=== PATIENT | male | born 1985 | race Caucasian/White ===

== ENCOUNTER 2016-06-09 13:32 | Emergency (ER) | payer MEDICAID ==
[2016-02-17 12:39] VITALS: Ht 172.7 cm; Wt 99.8 kg
[~2016-06-09] VITALS: Ht 172.7 cm; Wt 99.8 kg
[~2016-06-09 13:32] MED LIST: ALBU2.5V7 INH; ARTT OP; ASCO500T20 GT; BACL20TA GT; COLL100 GT; DEXL30CA3 GT; DULR10 RC; HEPA500014 SUBCUT; HYDR-1189 GT; HYDR-1189 PO; LEVE100S GT; LORA-258 GT; MAGN400O4 PO; MORP30CA17 GT; MULT240L3 GT; NEU100 GT; POTA20LI25 GT; SENN17.26 GT; TOPI100T11 GT; TYLL650 GT
[2016-06-09] MEDS ORDERED: GASTROGRAFIN 120 ML ONE (13:50)
[2016-06-09 13:54] VITALS: BP 124/64; PULSE 73; RESP 14; TEMP 98.9; O2SAT 100
[2016-06-09 14:28] VITALS: BP 133/71; PULSE 65; RESP 18; TEMP 98; O2SAT 100
== END 2016-06-09 14:28 | disposition home or self-care (01) ==
LOC: SED 13:32
DX: Z46.59 Encounter for fitting and adjustment of other gastrointestinal appliance and device (principal); I10 Essential (primary) hypertension
CPT/HCPCS: 43760; 74240; 99284; Q9963

== ENCOUNTER 2020-07-28 13:12 | Inpatient (IN) | payer BC, SELFPAY ==
[~2020-07-28] VITALS: Ht 175.3 cm; Wt 82.6 kg
[~2020-07-28 13:12] MED LIST changes: +CEFEPIME 1 GM/VIAL (MAXIPIME) IV ONE; -HEPA500014 SUBCUT; +HEPA500015 SUBCUT; -HYDR-1189 GT; -HYDR-1189 PO; +HYDR-3919 GT; +HYDR-3919 PO; -MAGN400O4 PO; +MOM PO; +NS 1000 ML IV.SOLN IV ONE; +NS IRRIG SOLN 1000 ML IR ONE; +PROPOFOL 200MG/ 20ML VIAL (DIPRIVAN) IV ONE; +SEVOFLURANE 15 MIN GAS INH ONE; +WATER FOR IRRIGATION,STERILE 1,000 ML IRRIG.SOLN IR ONE; +fentaNYL CITRATE/PF 100 MCG/2 ML AMP IVP ONE
[2020-07-28 15:34] LABS: BASOPHILS # (AUTO) 0.1 K/uL (0.0-0.2); BASOPHILS % (AUTO) 0.8 % (0.0-2.0); EOSINOPHILS # (AUTO) 0.2 K/uL (0.0-0.4); EOSINOPHILS % (AUTO) 1.6 % (0.0-4.0); HEMATOCRIT 48.9 % (36-54); HEMOGLOBIN 16.3 g/dL (14.0-18.0); LYMPHOCYTES # (AUTO) 2.6 K/uL (1.0-5.5); LYMPHOCYTES % (AUTO) 18.8 % (20.5-51.5); MEAN CORPUSCULAR HEMOGLOBIN 31 pg (27-31); MEAN CORPUSCULAR HGB CONC 33 % (32-36); MEAN CORPUSCULAR VOLUME 92 fL (79.0-98.0); MONOCYTES # (AUTO) 1.1 K/uL (0.0-1.0); MONOCYTES % (AUTO) 8.1 % (1.7-9.3); NEUTROPHILS # (AUTO) 9.9 K/uL (1.8-7.7); NEUTROPHILS % (AUTO) 70.7 % (40.0-70.0); PLATELET COUNT (AUTO) 197 K/uL (130-430); RED BLOOD CELL COUNT(AUTO) 5.33 MIL/uL (4.2-6.2); RED CELL DISTRIBUTION WIDTH 14.2 % (9.0-15.0)
[2020-07-28 15:49] LABS: CALCIUM 8.6 mg/dL (8.4-11.0); CREATININE 0.84 mg/dL (0.55-1.30); POTASSIUM 4.3 mmol/L (3.5-5.1)
[2020-07-28] MEDS ORDERED: LIDOCAINE 1%, 20 ML MDV 20 ML ONE (16:41)
[2020-07-28] MEDS ORDERED: ALBUTEROL MDI INHALATION 8 GM INH INH PRN (18:00)
[2020-07-28 20:20] VITALS: BP_SYST 130
[2020-07-28 20:48] VITALS: BP_SYST 145
[2020-07-28 20:54] VITALS: BP_SYST 145
[2020-07-28] MEDS ORDERED: SENNA 8.8 MG/5 ML UDC GT SCH (21:00)
[2020-07-28] MEDS ORDERED: LevETIRAcetam 500 MG/5 ML UDC ORAL LIQUID GT SCH (21:00)
[2020-07-28] MEDS ORDERED: levETIRAcetam 500 MG TABLET ONE (22:21)
[2020-07-28] MEDS: CALCIUM CARBONATE 500 MG/ TAB.CHEW GT SCH (22:24)
[2020-07-28] MEDS ORDERED: MORPHINE SULFATE 30 MG GT SCH (22:45)
[2020-07-28] MEDS ORDERED: HYDROcodone/ACETAMIN 5-325 MG TAB (NORCO/ VICODIN) GT PRN (22:45)
[2020-07-28] MEDS ORDERED: PEG 400/HYPROMELLOSE/GLYCERIN 15 ML DROPS OP SCH (22:45)
[2020-07-28] MEDS: ALBUTEROL SULFATE 0.083% 2.5 MG/3 ML VIAL.NEB INH SCH (22:45)
[2020-07-28] MEDS ORDERED: NALOXONE HCL 0.4 MG/ML AMP (NARCAN) IVP PRN ×2 (22:45→23:00)
[2020-07-28] MEDS ORDERED: MILK OF MAGNESIA 30 ML UDC PO PRN (22:45)
[2020-07-28] MEDS ORDERED: BISACODYL 10 MG/SUPPOSITORY RC PRN (22:45)
[2020-07-28] MEDS ORDERED: ALBUTEROL SULFATE 0.083% 2.5 MG/3 ML VIAL.NEB INH PRN (22:45)
[2020-07-28] MEDS ORDERED: ACETAMINOPHEN 650 MG/20.3 ML UDC GT PRN (22:45)
[2020-07-28] MEDS ORDERED: COMMUNICATION ORDER XX ONE (23:00)
[2020-07-28] MEDS ORDERED: MORPHINE 2 MG/ML INJ. SYRINGE IVP PRN (23:00)
[2020-07-28] MEDS ORDERED: hydrALAZINE HCL 20 MG/ML VIAL IVP PRN (23:00)
[2020-07-28] MEDS ORDERED: levETIRAcetam 500 MG TABLET GT ONE (23:00)
[2020-07-28] MEDS ORDERED: LORazepam 2 MG/ML VIAL IVP PRN (23:00)
[2020-07-28] MEDS: GABAPENTIN 100 MG CAPSULE GT SCH (23:11)
[2020-07-28] MEDS: PANTOPRAZOLE SODIUM 40 MG/VIAL (PROTONIX) IVP SCH (23:11)
[2020-07-28] MEDS: TOPIRAMATE 100 MG TABLET(Topamax) GT SCH (23:12)
[2020-07-28] MEDS: SUCRALFATE 1 GM/10 ML UDC GT SCH (23:13)
[2020-07-28] MEDS ORDERED: CEFEPIME 1 GM/VIAL (MAXIPIME) ONE (23:35)
[2020-07-28] MEDS: D5/0.45 NS 1,000 ML IV SCH (23:56)
[2020-07-28] MEDS: CEFEPIME 1 GM in D5W 50 ML IV SCH (23:56)
[2020-07-29] VITALS (7 sets, daily range): BP systolic 106–166
[2020-07-29] MEDS: ALBUTEROL SULFATE 0.083% 2.5 MG/3 ML VIAL.NEB INH SCH ×4 (01:00→20:21)
[2020-07-29] MEDS: LANSOPRAZOLE 30 MG CAPSULE.DR GT SCH (06:21)
[2020-07-29] MEDS: SUCRALFATE 1 GM/10 ML UDC GT SCH ×4 (06:21→23:43)
[2020-07-29 07:25] LABS: CALCIUM 8.3 mg/dL (8.4-11.0); CREATININE 0.88 mg/dL (0.55-1.30); POTASSIUM 3.8 mmol/L (3.5-5.1)
[2020-07-29 07:29] LABS: HEMATOCRIT 50.6 % (36-54); HEMOGLOBIN 16.8 g/dL (14.0-18.0); MEAN CORPUSCULAR HEMOGLOBIN 31 pg (27-31); MEAN CORPUSCULAR HGB CONC 33 % (32-36); MEAN CORPUSCULAR VOLUME 92 fL (79.0-98.0); PLATELET COUNT (AUTO) 187 K/uL (130-430); RED CELL DISTRIBUTION WIDTH 14.1 % (9.0-15.0); WHITE BLOOD COUNT (AUTO) 24.2 K/uL (4.8-10.8)
[2020-07-29] MEDS: PANTOPRAZOLE SODIUM 40 MG/VIAL (PROTONIX) IVP SCH ×2 (08:17→21:58)
[2020-07-29] MEDS: LevETIRAcetam 500 MG/5 ML UDC ORAL LIQUID GT SCH ×2 (08:17→21:57)
[2020-07-29] MEDS: DOCUSATE SODIUM 100 MG/10 ML UDC GT SCH ×2 (08:17→21:57)
[2020-07-29] MEDS: GABAPENTIN 100 MG CAPSULE GT SCH ×3 (08:17→21:58)
[2020-07-29] MEDS: POTASSIUM CHLORIDE 20 MEQ/PKT PACKET GT SCH (08:17)
[2020-07-29] MEDS: CALCIUM CARBONATE 500 MG/ TAB.CHEW GT SCH ×2 (08:18→21:57)
[2020-07-29] MEDS: ASCORBIC ACID 500 MG TABLET GT SCH (08:18)
[2020-07-29] MEDS: BACLOFEN 10 MG TABLET GT SCH ×3 (08:18→21:57)
[2020-07-29] MEDS: TOPIRAMATE 100 MG TABLET(Topamax) GT SCH ×2 (08:18→21:57)
[2020-07-29] MEDS: HEPARIN SODIUM,PORCINE 5,000 UNITS/ML VIAL SUBCUT SCH ×2 (08:25→21:00)
[2020-07-29] MEDS: SENNA 8.8 MG/5 ML UDC GT SCH ×2 (08:34→22:32)
[2020-07-29] MEDS: CEFEPIME 1 GM in D5W 50 ML IV SCH ×2 (08:34→21:59)
[2020-07-29] MEDS: MULTIVIT-MINERALS/FERROUS GLUC 15 ML UDC GT SCH (08:35)
[2020-07-29] MEDS ORDERED: BACLOFEN 10 MG TABLET GT SCH (09:00)
[2020-07-29] MEDS ORDERED: POTASSIUM CHLORIDE 20 MEQ GT SCH (09:00)
[2020-07-29 09:23] LABS: BAND % (MANUAL) 18 % (0-6); BASOPHILS % (MANUAL) 0 % (0-2); EOSINOPHILS % (MANUAL) 0 % (0-7); LYMPHOCYTES % (MANUAL) 2 % (20-46); MONOCYTES % (MANUAL) 8 % (0-11); WBC MORPHOLOGY TOXIC VACUOLATION
[2020-07-29] MEDS ORDERED: LIDOCAINE 1% 10 MG/ML, 20 ML MDV INJ ONE (11:00)
[2020-07-29] MEDS: D5/0.45 NS 1,000 ML IV SCH ×2 (11:46→17:00)
[2020-07-29] MEDS ORDERED: LIDOCAINE 1%, 20 ML MDV 0 ML ONE (20:36)
[2020-07-30] VITALS (9 sets, daily range): BP systolic 100–149
[2020-07-30] MEDS: ALBUTEROL SULFATE 0.083% 2.5 MG/3 ML VIAL.NEB INH SCH ×4 (01:30→19:58)
[2020-07-30] MEDS: D5/0.45 NS 1,000 ML IV SCH ×2 (05:07→20:25)
[2020-07-30] MEDS: SUCRALFATE 1 GM/10 ML UDC GT SCH ×4 (06:00→23:44)
[2020-07-30] MEDS: LANSOPRAZOLE 30 MG CAPSULE.DR GT SCH (06:02)
[2020-07-30 06:22] LABS: BASOPHILS # (AUTO) 0.1 K/uL (0.0-0.2); BASOPHILS % (AUTO) 0.5 % (0.0-2.0); EOSINOPHILS % (AUTO) 0.1 % (0.0-4.0); HEMATOCRIT 48.5 % (36-54); HEMOGLOBIN 16.1 g/dL (14.0-18.0); LYMPHOCYTES % (AUTO) 10.1 % (20.5-51.5); MEAN CORPUSCULAR HEMOGLOBIN 31 pg (27-31); MEAN CORPUSCULAR HGB CONC 33 % (32-36); MEAN CORPUSCULAR VOLUME 92 fL (79.0-98.0); MONOCYTES # (AUTO) 1.1 K/uL (0.0-1.0); MONOCYTES % (AUTO) 11.1 % (1.7-9.3); NEUTROPHILS # (AUTO) 7.5 K/uL (1.8-7.7); NEUTROPHILS % (AUTO) 78.2 % (40.0-70.0); PLATELET COUNT (AUTO) 141 K/uL (130-430); RED BLOOD CELL COUNT(AUTO) 5.25 MIL/uL (4.2-6.2); RED CELL DISTRIBUTION WIDTH 14.2 % (9.0-15.0); WHITE BLOOD COUNT (AUTO) 9.6 K/uL (4.8-10.8)
[2020-07-30 07:17] LABS: CREATININE 0.95 mg/dL (0.55-1.30); POTASSIUM 3.5 mmol/L (3.5-5.1)
[2020-07-30 08:04] LABS: INR 1.3 (0.80-1.20); PROTHROMBIN TIME 12.9 SECS (9.5-12.5)
[2020-07-30] MEDS ORDERED: KETOROLAC TROMETHAMINE 30 MG VIAL IVP PRN (08:15)
[2020-07-30] MEDS ORDERED: HYDROmorphone 1 MG INJ. 1 MG/ML CARTRIDGE IVP PRN (08:15)
[2020-07-30] MEDS ORDERED: ONDANSETRON HCL 4 MG/2 ML VIAL IVP PRN (08:15)
[2020-07-30] MEDS ORDERED: NALOXONE HCL 0.4 MG/ML AMP (NARCAN) IVP PRN (08:15)
[2020-07-30] MEDS: HEPARIN SODIUM,PORCINE 5,000 UNITS/ML VIAL SUBCUT SCH (09:00)
[2020-07-30] MEDS: PANTOPRAZOLE SODIUM 40 MG/VIAL (PROTONIX) IVP SCH ×2 (09:40→20:26)
[2020-07-30] MEDS: TOPIRAMATE 100 MG TABLET(Topamax) GT SCH ×2 (09:41→20:26)
[2020-07-30] MEDS: BACLOFEN 10 MG TABLET GT SCH ×3 (09:41→20:26)
[2020-07-30] MEDS: CALCIUM CARBONATE 500 MG/ TAB.CHEW GT SCH ×2 (09:41→20:26)
[2020-07-30] MEDS: CEFEPIME 1 GM in D5W 50 ML IV SCH ×2 (09:41→20:25)
[2020-07-30] MEDS: GABAPENTIN 100 MG CAPSULE GT SCH ×3 (09:41→20:26)
[2020-07-30] MEDS: POTASSIUM CHLORIDE 20 MEQ/PKT PACKET GT SCH (09:41)
[2020-07-30] MEDS: ASCORBIC ACID 500 MG TABLET GT SCH (09:41)
[2020-07-30] MEDS: LevETIRAcetam 500 MG/5 ML UDC ORAL LIQUID GT SCH ×2 (09:42→20:25)
[2020-07-30] MEDS: MULTIVIT-MINERALS/FERROUS GLUC 15 ML UDC GT SCH (09:42)
[2020-07-30] MEDS: DOCUSATE SODIUM 100 MG/10 ML UDC GT SCH ×2 (09:42→20:26)
[2020-07-30] MEDS ORDERED: LORazepam 2 MG/ML VIAL IVP PRN (11:00)
[2020-07-30] MEDS: SENNA 8.8 MG/5 ML UDC GT SCH ×2 (11:18→20:25)
[2020-07-31] VITALS (9 sets, daily range): BP systolic 115–137
[2020-07-31] MEDS: ALBUTEROL SULFATE 0.083% 2.5 MG/3 ML VIAL.NEB INH SCH ×4 (00:08→19:44)
[2020-07-31] MEDS: SUCRALFATE 1 GM/10 ML UDC GT SCH ×4 (06:10→23:57)
[2020-07-31] MEDS: LANSOPRAZOLE 30 MG CAPSULE.DR GT SCH (06:10)
[2020-07-31] MEDS: D5/0.45 NS 1,000 ML IV SCH (09:26)
[2020-07-31] MEDS: TOPIRAMATE 100 MG TABLET(Topamax) GT SCH ×2 (09:28→20:55)
[2020-07-31] MEDS: ASCORBIC ACID 500 MG TABLET GT SCH (09:29)
[2020-07-31] MEDS: POTASSIUM CHLORIDE 20 MEQ/PKT PACKET GT SCH (09:29)
[2020-07-31] MEDS: CALCIUM CARBONATE 500 MG/ TAB.CHEW GT SCH ×2 (09:29→20:55)
[2020-07-31] MEDS: GABAPENTIN 100 MG CAPSULE GT SCH ×3 (09:29→20:55)
[2020-07-31] MEDS: PANTOPRAZOLE SODIUM 40 MG/VIAL (PROTONIX) IVP SCH ×2 (09:29→20:55)
[2020-07-31] MEDS: DOCUSATE SODIUM 100 MG/10 ML UDC GT SCH ×2 (09:30→20:56)
[2020-07-31] MEDS: BACLOFEN 10 MG TABLET GT SCH ×3 (09:30→20:55)
[2020-07-31] MEDS: CEFEPIME 1 GM in D5W 50 ML IV SCH ×2 (09:30→20:55)
[2020-07-31] MEDS: LevETIRAcetam 500 MG/5 ML UDC ORAL LIQUID GT SCH ×2 (09:31→20:54)
[2020-07-31] MEDS: MULTIVIT-MINERALS/FERROUS GLUC 15 ML UDC GT SCH (09:31)
[2020-07-31] MEDS: SENNA 8.8 MG/5 ML UDC GT SCH ×2 (09:31→20:56)
[2020-08-01 00:40] VITALS: BP_SYST 118
[2020-08-01] MEDS: LANSOPRAZOLE 30 MG CAPSULE.DR GT SCH (06:06)
[2020-08-01] MEDS: SUCRALFATE 1 GM/10 ML UDC GT SCH ×2 (06:06→12:56)
[2020-08-01] MEDS: D5/0.45 NS 1,000 ML IV SCH ×2 (06:07→12:57)
[2020-08-01 07:30] VITALS: BP_SYST 117
[2020-08-01] MEDS: ALBUTEROL SULFATE 0.083% 2.5 MG/3 ML VIAL.NEB INH SCH ×2 (08:06→13:52)
[2020-08-01] MEDS: CEFEPIME 1 GM in D5W 50 ML IV SCH (08:24)
[2020-08-01] MEDS: MULTIVIT-MINERALS/FERROUS GLUC 15 ML UDC GT SCH (08:25)
[2020-08-01] MEDS: CALCIUM CARBONATE 500 MG/ TAB.CHEW GT SCH (08:27)
[2020-08-01] MEDS: DOCUSATE SODIUM 100 MG/10 ML UDC GT SCH (08:27)
[2020-08-01] MEDS: GABAPENTIN 100 MG CAPSULE GT SCH ×2 (08:27→14:28)
[2020-08-01] MEDS: PANTOPRAZOLE SODIUM 40 MG/VIAL (PROTONIX) IVP SCH (08:27)
[2020-08-01] MEDS: SENNA 8.8 MG/5 ML UDC GT SCH (08:27)
[2020-08-01] MEDS: ASCORBIC ACID 500 MG TABLET GT SCH (08:28)
[2020-08-01] MEDS: TOPIRAMATE 100 MG TABLET(Topamax) GT SCH (08:28)
[2020-08-01] MEDS: BACLOFEN 10 MG TABLET GT SCH ×2 (08:28→14:28)
[2020-08-01] MEDS: POTASSIUM CHLORIDE 20 MEQ/PKT PACKET GT SCH (08:28)
[2020-08-01] MEDS: LevETIRAcetam 500 MG/5 ML UDC ORAL LIQUID GT SCH (08:29)
[2020-08-01 12:24] VITALS: BP_SYST 113
[2020-08-01 16:01] VITALS: BP_SYST 110
[2020-08-01 16:22] VITALS: BP_SYST 110
[2020-08-01] MEDS ORDERED: SEPTRA DS (16:28)
[2020-08-01] MEDS ORDERED: SEPTRA DS GT (16:30)
== END 2020-08-01 16:55 | DRG 468 ==
LOC: SED 13:12 → SMU 17:39 → STU 20:02
PROVIDERS: ADMIT Family Medicine; ATTEND Family Medicine
PROC: 5A1945Z Respiratory Ventilation, 24-96 Consecutive Hours (ICD-10-PCS; 2020-07-28)
PROC: 0T9B80Z Drainage of Bladder with Drainage Device, Via Natural or Artificial Opening Endoscopic (ICD-10-PCS; 2020-07-30)
PROC: 0T7D8ZZ Dilation of Urethra, Via Natural or Artificial Opening Endoscopic (ICD-10-PCS; principal; 2020-07-30 07:30)
DX: N32.89 Other specified disorders of bladder (principal); N32.0 Bladder-neck obstruction; N35.919 Unspecified urethral stricture, male, unspecified site; J96.10 Chronic respiratory failure, unspecified whether with hypoxia or hypercapnia; G80.9 Cerebral palsy, unspecified; G40.909 Epilepsy, unspecified, not intractable, without status epilepticus; N13.9 Obstructive and reflux uropathy, unspecified; I10 Essential (primary) hypertension; N39.0 Urinary tract infection, site not specified; Z20.822 Contact with and (suspected) exposure to COVID-19; Z79.899 Other long term (current) drug therapy; Z93.1 Gastrostomy status; Z93.0 Tracheostomy status
CPT/HCPCS: 36415; 76857; 80048; 82542; 83735-TC; 85007; 85025; 85027; 85610-TC; 85730-TC; 87070-TC; 87081; 87205-TC; 94002; 94003; 94640; 94760; C1769; C2627; C9113; G0378; J0692; J1644; J2001; J2270; J2704; J3010; J7030; J7060; J7613

== ENCOUNTER 2021-05-05 21:40 | Inpatient (IN) | payer BC, SELFPAY ==
[~2021-05-05] VITALS: Ht 175.3 cm; Wt 74.0 kg
[~2021-05-05 21:40] MED LIST changes: -CEFEPIME 1 GM/VIAL (MAXIPIME) IV ONE; -NS 1000 ML IV.SOLN IV ONE; -NS IRRIG SOLN 1000 ML IR ONE; -PROPOFOL 200MG/ 20ML VIAL (DIPRIVAN) IV ONE; +SEPTRA DS GT; -SEVOFLURANE 15 MIN GAS INH ONE; -WATER FOR IRRIGATION,STERILE 1,000 ML IRRIG.SOLN IR ONE; -fentaNYL CITRATE/PF 100 MCG/2 ML AMP IVP ONE
[2021-05-05 21:58] VITALS: BP_SYST 108
--- NOTE | 2021-05-05 22:00 | NUR ---
PT BIB [facility] FROM [facility] FOR SEIZURE ACTVITY TONIGHT. PT WAS SEEN HVAING SEZIURE ACTIVITY AT 2030 TODAY BY STAFF. MEDICS STATE HASNT HAD A SEIZURE FOR 13 YERAS PER FACILITY. PT GIVEN 2 IM ATIVAN BY FACILITY AND 2 DOSES OF 5 MG INTRANASAL VERSED. PT IS CURRENTLY NOT SEIZING. PT IS ON A VENT. PT ARRIVED WITH A IO PLACED TO LEFT LOWER LEG. WORKING APPROPRIATLY. A&OX0 BASELINE. PT HAS A SUPRAPUBIC CATHETOR IN PLACE WELL.
--- NOTE | 2021-05-05 22:37 | NUR ---
Patient transported to radiology via gurney, accompanied by rt, tech, nurse.
--- NOTE | 2021-05-05 22:38 | NUR ---
xr at bedside
--- NOTE | 2021-05-05 23:06 | NUR ---
# 22 gauge angiocath placed to L HAND. Use of asceptic technique. Opsite placed over site. Blood return noted. Blood for lab drawn from site. Flushed with 10 cc of normal saline. No evidence of infiltration noted. Patient tolerated well.
[2021-05-05] MEDS ORDERED: PIPERACILLIN/TAZOBACTAM 2.25 GM VIAL IV ONE (23:15)
[2021-05-05] MEDS ORDERED: MEROPENEM 500 MG VIAL IV ONE (23:20)
[2021-05-05 23:27] LABS: BASOPHILS # (AUTO) 0.1 K/uL (0.0-0.2); BASOPHILS % (AUTO) 0.4 % (0.0-2.0); EOSINOPHILS % (AUTO) 0.2 % (0.0-4.0); HEMATOCRIT 45.5 % (36-54); HEMOGLOBIN 15.7 g/dL (14.0-18.0); LYMPHOCYTES # (AUTO) 1.7 K/uL (1.0-5.5); LYMPHOCYTES % (AUTO) 11.4 % (20.5-51.5); MEAN CORPUSCULAR HEMOGLOBIN 31 pg (27-31); MEAN CORPUSCULAR HGB CONC 34 % (32-36); MEAN CORPUSCULAR VOLUME 89 fL (79.0-98.0); MONOCYTES # (AUTO) 0.8 K/uL (0.0-1.0); MONOCYTES % (AUTO) 5.8 % (1.7-9.3); NEUTROPHILS % (AUTO) 82.2 % (40.0-70.0); PLATELET COUNT (AUTO) 231 K/uL (130-430); RED BLOOD CELL COUNT(AUTO) 5.13 MIL/uL (4.2-6.2); RED CELL DISTRIBUTION WIDTH 13.6 % (9.0-15.0); WHITE BLOOD COUNT (AUTO) 14.5 K/uL (4.8-10.8)
[2021-05-05 23:29] LABS: CALCIUM 8.6 mg/dL (8.4-11.0); CREATININE 0.59 mg/dL (0.55-1.30); POTASSIUM 3.9 mmol/L (3.5-5.1)
[2021-05-05] MEDS ORDERED: VANCOMYCIN HCL 1000 MG/VIAL IV ONE (23:31)
[2021-05-05 23:35] LABS: ALBUMIN 3.5 g/dL (3.4-4.8); TOTAL BILIRUBIN 0.5 mg/dL (0.0-1.0)
[2021-05-06] VITALS (22 sets, daily range): BP systolic 90–148
[2021-05-06 00:23] LABS: BARBITURATE, URINE NEGATIVE (NEG <=200); BENZODIAZEPINE, URINE NEGATIVE (NEG <=150); CANNABINOID, URINE NEGATIVE (NEG <=50); COCAINE, URINE NEGATIVE (NEG <=150); METHAMPHETAMINES SCREEN,URINE NEGATIVE (NEG <=500); OPIATE, URINE NEGATIVE (NEG <=100); PHENCYCLIDINE SCREEN,URINE NEGATIVE (NEG <=25); UR TRICYCLIC ANTIDEPRESSANTS NEGATIVE (NEG <=300); URINE AMPHETAMINE NEGATIVE (NEG <=500); URINE METHADONE NEGATIVE (NEG <=200); URINE OXYCODONE SCREEN NEGATIVE (NEG <=100); URINE PROPOXYPHENE SCREEN NEGATIVE (NEG <=300)
--- NOTE | 2021-05-06 00:40 | NUR ---
Patient will be admitted to care of DR. BARLOW. Admitted to ICU unit. Will go to room TBD. Belongings list completed. Complete and up to date summary report printed. SBAR report to be given at bedside with opportunity for questions.
[2021-05-06] MEDS ORDERED: VANCOMYCIN HCL 1,000 MG in NS 250 ML IV ONE (00:45)
[2021-05-06] MEDS ORDERED: AZITHROMYCIN 500 MG in NS 250 ML IV ONE (00:45)
[2021-05-06] MEDS ORDERED: PIPERACILLIN/TAZO 3.375 GM in NS 50 ML IV ONE (00:45)
[2021-05-06] MEDS ORDERED: PIPERACILLIN/TAZOBACTAM 3.375 GM/VIAL (ZOSYN) IV ONE ×2 (00:48→06:22)
[2021-05-06] MEDS ORDERED: AZITHROMYCIN 500 MG/VIAL (ZITHROMAX) IV ONE (00:48)
[2021-05-06] MEDS ORDERED: VANCOMYCIN HCL 1000 MG/VIAL IV ONE (00:48)
[2021-05-06] MEDS: LORazepam 2 MG/ML VIAL IVP SCH (01:04)
--- NOTE | 2021-05-06 01:07 | NUR ---
OBSERVED WITH DR BRADFORD WHAT SEEMS TO BE SEIZURE LIKE ACTIVITY. RAPID EYE MOVEMENT AND EYE TWITCHING. 1MG OF ATIVAN GIVEN.
[2021-05-06] MEDS ORDERED: levETIRAcetam 500 MG IV PREMIX 100 ML IV ONE (01:15)
[2021-05-06] MEDS ORDERED: NACL 0.9% 1,000 ML IV ONE (01:30)
[2021-05-06] MEDS ORDERED: LORazepam 2 MG/ML VIAL IVP ONE (01:30)
--- NOTE | 2021-05-06 01:40 | NUR ---
Transfer to [facility] via ACLS protocol. Licensed nurse present. IV present no signs or symptoms of infiltration.
[2021-05-06] MEDS: D5/0.45 NS 1,000 ML IV SCH ×2 (01:50→14:05)
--- NOTE | 2021-05-06 01:50 | NUR ---
Received patient from ER. Transported by Abdulaziz RN & Mandi, RT. Patient is on droplet/contact isolation for COVID 19 & contact isolation for MDRO / RAG SORTER sputum. Patient is nonverbal. With Tracheostomy connected to vent. Setting: AC 12, Tv 600, FiO2 40%, Peep 5. Assessed rhonchi sounds on left lung & diminished on right lung. HOB elevated. Suction as needed. Good oral care provided. Head-to-toe assessment done. Sacral area with erythema & bilateral groin with redness. Skin is intact. Good skin care given. With suprapubic catheter draining with cloudy urine. Ostomy with mild redness on surrounding area. Patient is contracted to all extremities. Skin is warm to touch. Radial pulses & Dorsalis pedis pulses are present. No edema. IV access on left arm 22 gauge. Left lower leg with Intraosseous IV. All sites kept clean & dry. Will continue to monitor.
[2021-05-06 03:02] LABS: BILIRUBIN,URINE NEGATIVE (NEGATIVE); BLOOD, URINE 3+ (NEGATIVE); CLARITY/URINE CLOUDY (CLEAR); COLOR,URINE YELLOW (YELLOW); GLUCOSE,URINE NEGATIVE (NEGATIVE); KETONES,URINE NEGATIVE (NEGATIVE); LEUKOCYTE ESTERASE ,URINE 2+ (NEGATIVE); NITRITE, URINE POSITIVE (NEGATIVE); PROTEIN URINE 2+ (NEGATIVE); UROBILINOGEN,URINE 0.2 (0.2-1.0)
[2021-05-06 03:34] LABS: BACTERIA,URINE MANY /HPF (None Seen); RBC,URINE 50-80 /HPF (0-3); WBC,URINE 20-50 /HPF (0-3)
[2021-05-06 03:35] LABS: MUCUS,URINE None Seen /LPF (None Seen)
[2021-05-06] MEDS ORDERED: MEROPENEM 1 GM in NS 100 ML IV ONE (04:30)
[2021-05-06] MEDS ORDERED: MEROPENEM 1 GM VIAL IV ONE (05:25)
[2021-05-06] MEDS ORDERED: PIPERACILLIN/TAZO 3.375 GM in NS 50 ML IV SCH (06:00)
[2021-05-06] MEDS: LevETIRAcetam 500 MG/5 ML UDC ORAL LIQUID GT SCH ×3 (08:18→21:00)
[2021-05-06] MEDS ORDERED: LevETIRAcetam 500 MG/5 ML UDC ORAL LIQUID GT SCH (09:00)
--- NOTE | 2021-05-06 10:51 | NUR ---
Nutrition Update : Luis A Scale: 8 noted Pt admitted for Covid Pneumonia. Diet: NPO BMI: 23.3 kg/m2 RD to follow per nutrition care standards.
[2021-05-06] MEDS ORDERED: VANCOMYCIN HCL 1,000 MG in NS 250 ML IV SCH (11:00)
[2021-05-06] MEDS: PIPERACILLIN/TAZO 3.375 GM in D5W 50 ML IV SCH ×2 (13:24→17:22)
[2021-05-06] MEDS: DEXAMETHASONE SOD PHOSPHATE 10 MG/ML VIAL IVP SCH (19:17)
[2021-05-06] MEDS: AZITHROMYCIN 500 MG in NS 250 ML IV SCH (20:16)
[2021-05-06] MEDS: ASCORBIC ACID 500 MG TABLET PO SCH ×2 (20:17→21:00)
[2021-05-06] MEDS: ENOXAPARIN SODIUM 40 MG/0.4 ML SYRINGE SUBCUT SCH (20:18)
[2021-05-06] MEDS ORDERED: AZITHROMYCIN 500 MG in NS 250 ML IV SCH (21:00)
--- NOTE | 2021-05-06 22:12 | NUR ---
Unable to administer medications via PEG tube due to not having correct equipment to administer medication properly notified Dr. Moe and he changed Keppra to IV. Lovenox was administered. Will continue to monitor this patient closely for any acute changes.
[2021-05-06] MEDS: levETIRAcetam 1,500 MG in NS 85 ML IV SCH (22:22)
--- NOTE | 2021-05-06 22:39 | NUR ---
PICC line place and placement confirmed via xray. Will continue to monitor this patient closely for any acute changes.
[2021-05-07] VITALS (31 sets, daily range): BP systolic 110–139
[2021-05-07] MEDS: D5/0.45 NS 1,000 ML IV SCH ×2 (04:17→17:01)
[2021-05-07 06:35] LABS: CALCIUM 8.4 mg/dL (8.4-11.0); CREATININE 0.73 mg/dL (0.55-1.30); POTASSIUM 3.4 mmol/L (3.5-5.1)
[2021-05-07 06:37] LABS: BASOPHILS % (AUTO) 0.2 % (0.0-2.0); HEMATOCRIT 43.5 % (36-54); HEMOGLOBIN 14.9 g/dL (14.0-18.0); LYMPHOCYTES # (AUTO) 0.5 K/uL (1.0-5.5); LYMPHOCYTES % (AUTO) 5.6 % (20.5-51.5); MEAN CORPUSCULAR HEMOGLOBIN 31 pg (27-31); MEAN CORPUSCULAR HGB CONC 34 % (32-36); MEAN CORPUSCULAR VOLUME 90 fL (79.0-98.0); MONOCYTES # (AUTO) 0.5 K/uL (0.0-1.0); MONOCYTES % (AUTO) 6.1 % (1.7-9.3); NEUTROPHILS # (AUTO) 7.5 K/uL (1.8-7.7); NEUTROPHILS % (AUTO) 88.1 % (40.0-70.0); PLATELET COUNT (AUTO) 206 K/uL (130-430); RED BLOOD CELL COUNT(AUTO) 4.86 MIL/uL (4.2-6.2); RED CELL DISTRIBUTION WIDTH 13.6 % (9.0-15.0); WHITE BLOOD COUNT (AUTO) 8.5 K/uL (4.8-10.8)
--- NOTE | 2021-05-07 07:15 | NUR ---
Received report from anthropology professor RN, and assumed patient care.
--- NOTE | 2021-05-07 07:50 | NUR ---
Dr. Rangel is at bedside and performed the switch on the PEG tube, will wait for KUB confirmation. No new orders noted at the moment.
[2021-05-07] MEDS ORDERED: GASTROGRAFIN 120 ML ONE (08:17)
--- NOTE | 2021-05-07 08:34 | NUR ---
Nutrition Update Luis A Scale 12 noted. Pt admitted for COVID pneumonia. Diet: N/A BMI: 23.3 kg/m2 RD to follow per nutrition care standards.
--- NOTE | 2021-05-07 09:30 | NUR ---
Received confirmation of G. Tube via XR UGI w/Gastrograffin, which was reviewed by Dr. Nato Tony. Per ANNA Hernandez to use PEG tube.
[2021-05-07] MEDS: CHOLECALCIFEROL (VITAMIN D3) 5,000 UNIT TABLET PO SCH (10:42)
[2021-05-07] MEDS: ASCORBIC ACID 500 MG TABLET PO SCH ×2 (10:42→20:39)
[2021-05-07] MEDS: ENOXAPARIN SODIUM 40 MG/0.4 ML SYRINGE SUBCUT SCH ×2 (10:42→20:40)
[2021-05-07] MEDS: levETIRAcetam 1,500 MG in NS 85 ML IV SCH ×2 (10:44→20:50)
--- NOTE | 2021-05-07 11:44 | NUR ---
Dr. Gar on the phone, provided nursing updates. No new orders noted at the moment, will reinforce if needed throughout the shift.
--- NOTE | 2021-05-07 14:00 | NUR ---
Called Dr. Moe's office to be paged, to clarify regarding patient's diet order. Will wait for further orders to be placed. No further orders noted at the moment, will reinforce if needed at the moment.
--- NOTE | 2021-05-07 15:00 | NUR ---
Called Dr. Moe's office and paged Dr. Moe's pager again to inform and clarify about the patient requiring a diet. No answer noted at the moment, nursing services manager (Shavon) is aware of the situation. Will reinforce if needed throughout the shift.
[2021-05-07] MEDS: DEXAMETHASONE SOD PHOSPHATE 10 MG/ML VIAL IVP SCH (17:01)
[2021-05-07] MEDS: AZITHROMYCIN 500 MG in NS 250 ML IV SCH (18:21)
[2021-05-07] MEDS ORDERED: POTASSIUM CHLORIDE 20 MEQ/PKT PACKET GT ONE (22:00)
[2021-05-08] VITALS (29 sets, daily range): BP systolic 117–143
--- NOTE | 2021-05-08 07:20 | NUR ---
Received report from bus van driver RN, assumed patient care.
--- NOTE | 2021-05-08 07:31 | NUR ---
pt was started on tube feedings @50ml/hr
[2021-05-08] MEDS: levETIRAcetam 1,500 MG in NS 85 ML IV SCH (08:41)
[2021-05-08] MEDS: CHOLECALCIFEROL (VITAMIN D3) 5,000 UNIT TABLET PO SCH (08:42)
[2021-05-08] MEDS: ASCORBIC ACID 500 MG TABLET PO SCH ×2 (08:42→20:52)
[2021-05-08] MEDS: ENOXAPARIN SODIUM 40 MG/0.4 ML SYRINGE SUBCUT SCH ×2 (08:43→20:52)
[2021-05-08] MEDS: D5/0.45 NS 1,000 ML IV SCH ×2 (08:45→18:38)
--- NOTE | 2021-05-08 10:30 | NUR ---
Patient had an experience of seizure, timed the seizure activity which lasted for 30-40 seconds, patient's saturation maintained in the 95%>, patient expressed tachycardia in the 120s and showed trembling of the left arm/hand. Post seizure activity, patient's HR returned in the 90-100s, saturation of 95%> maintained. printing machine mechanic is aware of the situation, will inform primary MD about the situation.
--- NOTE | 2021-05-08 10:45 | NUR ---
Attempted to call Dr. Moe regarding the situation of the seizure that occurred earlier, patient's current vital signs are within range at the moment and shows no signs of seizure, wanted to inform primary MD about that situation, and to clarify orders to continue D5 1/2. No answer, will try again later. No new orders noted at the moment, will continue to reinforce if needed throughout the shift.
--- NOTE | 2021-05-08 12:01 | NUR ---
Spoke to Dr. De La Paz on the phone, informed MD about the situation of the seizure activity from earlier time. No new orders noted at the moment, and will continue to reinforce if needed throughout the shift.
--- NOTE | 2021-05-08 12:15 | NUR ---
Discharge Planning: DCP faxed pt referral to [facility] [phone] DCP spoke to Gurpreet in admissions he will have DON review.
--- NOTE | 2021-05-08 14:50 | NUR ---
Dr. Moe at bedside, was informed about patient's early occurrence of seizure, clarification of the continuation of D5 1/2 NS. MD states to continue to monitor seizure activities and ordered to give PRN Ativan if needed, and continue D5 1/2 NS. wants patient to be discharged out of Hospital and back to [facility], human services case manager is working on the case. personally called [facility] to expedite the process of accepting patient, but [facility] states to wait for PCR COVID test to result to further move on about transferring patient out of hospital. Orders was placed on [employer]. Neurology consult placed for seizure activities. No new orders noted at the moment, will reinforce if needed throughout the shift.
--- NOTE | 2021-05-08 14:55 | NUR ---
Patient had another seizure activity, HR was in the 160s. Dr. Moe at bedside and ordered to give Ativan per PRN order. Primary RN at bedside, seizure lasted for 1-2 mins., patient's saturation maintained in the 95%>, patient's HR started to go down of 90-100s. ferry engineer is aware of the situation. Will continue to monitor and reassess throughout the shift.
[2021-05-08] MEDS: LORazepam 2 MG/ML VIAL IVP SCH (15:18)
--- NOTE | 2021-05-08 15:21 | NUR ---
Dietitian Recommendations * Glucerna 1.5 at 50 ml/hr, Free Water Flush: 200 ml Q6h via GT Provides: 1800 kcal/day, 99 gm protein/day, and 1711 ml free water/day Meets: 104% of estimated caloric needs and 92% of lower end of estimated protein needs LP, RD Please refer to Nutrition Assessment for details. Addendum: 05/08/21 at [address] Amended: Links added. Addendum: 05/08/21 at [address] CORRECTION: Dietitian Recommendations * Glucerna 1.5 at 50 ml/hr, Free Water Flush: 200 ml Q6h via GT Provides: 1800 kcal/day, 99 gm protein/day, and 1711 ml free water/day Meets: 104% of estimated caloric needs and 92% of lower end of estimated protein needs * Consider D/C D5%1/2NS at 75 ml/hr (306 kcal/day) LP, RD
--- NOTE | 2021-05-08 15:31 | NUR ---
Spoke w/ Gurpreet at [facility]. They cannot accept the patient until they have the results of a Covid PCR test. If the patient has a negative PCR he can go back to his former room. If the PCR is positive, they will create an isolation room for the patient. The PCR is currently pending.
--- NOTE | 2021-05-08 15:45 | NUR ---
Dr. Lara (Neurology) at bedside, is aware of the seizure activities that patient had during the AM shift. MD made changes on the medication, MD ordered EEG but to be done on Tuesday (05/11/2021) will wait for [facility], and be verified. No additional orders noted at the moment, will continue to monitor throughout the shift.
[2021-05-08] MEDS: DEXAMETHASONE SOD PHOSPHATE 10 MG/ML VIAL IVP SCH (16:48)
[2021-05-08] MEDS: levETIRAcetam 1,000 MG in NS 100 ML IV SCH ×2 (16:49→20:12)
[2021-05-08] MEDS: AZITHROMYCIN 500 MG in NS 250 ML IV SCH (17:38)
--- NOTE | 2021-05-08 19:30 | NUR ---
RECEIVED REPORT FROM JUDY MENDEZ, ASSUMED CARE, AND STARTED ASSESSMENT.
--- NOTE | 2021-05-08 20:00 | NUR ---
TURNED AND REPOSITIONED PATIENT TO THE LEFT SIDE FOR SAFETY AND COMFORT. WILL CONTINUE TO MONITOR AND ASSESS.
[2021-05-08] MEDS: TOPIRAMATE 100 MG TABLET(Topamax) PO SCH (20:52)
[2021-05-08] MEDS ORDERED: levETIRAcetam 1,000 MG in NS 100 ML IV SCH (22:00)
[2021-05-09] VITALS (26 sets, daily range): BP systolic 113–148
[2021-05-09] MEDS: levETIRAcetam 1,000 MG in NS 100 ML IV SCH ×5 (00:13→23:49)
--- NOTE | 2021-05-09 03:40 | NUR ---
COMPLETE BED BATH AND LINEN CHANGE GIVEN. PATIENT FOUND WITH STAGE 2 WOUND TO COCCYX. PHOTO TAKEN AND COVERED WITH OPTIFOAM DRESSING. CHARGE NURSE INFORMED. WILL CONTINUE TO MONITOR AND ASSESS FOR SAFETY AND COMFORT. PATIENT ALSO FOUND WITH AN INTRAOSSEUS IV SITE ON LEFT CASEY. CHARGE NURSE INFORMED AND SITE WAS DISCONTINUED WITH HER KNOWLEDGE AND A PRESSURE DRESSING APPLIED.
[2021-05-09 07:20] LABS: BASOPHILS % (AUTO) 0.3 % (0.0-2.0); EOSINOPHILS # (AUTO) 0.1 K/uL (0.0-0.4); EOSINOPHILS % (AUTO) 0.6 % (0.0-4.0); HEMATOCRIT 37.7 % (36-54); HEMOGLOBIN 12.8 g/dL (14.0-18.0); LYMPHOCYTES # (AUTO) 1.5 K/uL (1.0-5.5); LYMPHOCYTES % (AUTO) 16.8 % (20.5-51.5); MEAN CORPUSCULAR HEMOGLOBIN 31 pg (27-31); MEAN CORPUSCULAR HGB CONC 34 % (32-36); MEAN CORPUSCULAR VOLUME 91 fL (79.0-98.0); MONOCYTES % (AUTO) 11.2 % (1.7-9.3); NEUTROPHILS # (AUTO) 6.2 K/uL (1.8-7.7); NEUTROPHILS % (AUTO) 71.1 % (40.0-70.0); PLATELET COUNT (AUTO) 192 K/uL (130-430); RED BLOOD CELL COUNT(AUTO) 4.16 MIL/uL (4.2-6.2); RED CELL DISTRIBUTION WIDTH 13.9 % (9.0-15.0); WHITE BLOOD COUNT (AUTO) 8.7 K/uL (4.8-10.8)
--- NOTE | 2021-05-09 07:20 | NUR ---
Received report from pop singer RN, and assumed patient care.
[2021-05-09 07:53] LABS: ALBUMIN 2.5 g/dL (3.4-4.8); CREATININE 0.75 mg/dL (0.55-1.30); POTASSIUM 3.1 mmol/L (3.5-5.1); TOTAL BILIRUBIN 0.3 mg/dL (0.0-1.0)
[2021-05-09] MEDS: CHOLECALCIFEROL (VITAMIN D3) 5,000 UNIT TABLET PO SCH (08:33)
[2021-05-09] MEDS: ENOXAPARIN SODIUM 40 MG/0.4 ML SYRINGE SUBCUT SCH ×2 (08:33→21:03)
[2021-05-09] MEDS: TOPIRAMATE 100 MG TABLET(Topamax) PO SCH ×3 (08:33→22:30)
[2021-05-09] MEDS: ASCORBIC ACID 500 MG TABLET PO SCH ×2 (08:34→21:04)
--- NOTE | 2021-05-09 08:37 | NUR ---
Received critical lab value of random glucose of 553, kiln charger (Shavon) is aware. Called Dr. Moe's office of [phone] to page primary MD. Per child support officer, Dr. Schuler is covering for patient and was paged right after. Will wait for Dr. Schuler's call to inform values. No new orders noted at the moment, will reinforce if needed throughout the shift.
[2021-05-09] MEDS: D5/0.45 NS 1,000 ML IV SCH ×2 (08:42→22:05)
--- NOTE | 2021-05-09 08:45 | NUR ---
Dr. Schuler is on the phone with weigh and charge worker (Shavon), weigh and charge worker informed primary RN that Dr. Schuler is aware of the random glucose of 553, ordered to check glucose q6hrs and sliding scale. Dr. Schuler is aware patient does not have history of DM, but is on tube feeds of glucerna 1.5 and decadron 6mg per covid protocol. Will wait for orders to be placed on [employer], will continue to reinforce if needed throughout the shift.
[2021-05-09] MEDS ORDERED: INSULIN REGULAR, HUMAN 100 UNITS/ML, 10 ML VIAL (humuLIN R) SUBCUT PRN (09:00)
--- NOTE | 2021-05-09 09:00 | NUR ---
biology specimen technician (Wei) at bedside for EEG, no new orders noted at the moment, will reinforce if needed throughout the shift.
[2021-05-09] MEDS ORDERED: INSULIN REGULAR, HUMAN 100 UNITS/ML, 10 ML VIAL SUBCUT ONE (09:30)
--- NOTE | 2021-05-09 12:00 | NUR ---
BS: 89, holding the 16units of humulin R due to blood sugar within range. Dr. Schuler will be made aware of the situation once MD rounds at bedside, and will continue to monitor BS throughout the shift. Dr. Schuler is aware of the random glucose level of 553 in the AM labs, rechecked bedside glucose of 97 (insulin not indicated at the moment) and rechecked on scheduled time which results to BS 89 therefore holding the 16 units of humulin R. boat tender (Shavon) is aware of the situation. No new orders noted at the moment.
--- NOTE | 2021-05-09 14:53 | NUR ---
Received lab report regarding PCR for covid, patient is negative. flexographic press helper (Shavon) is aware. Paged Dr. Schuler, spoke to Nadine from [phone] will wait for call back.
--- NOTE | 2021-05-09 14:55 | NUR ---
Dr. Schuler called back, is informed about the resulted PCR for COVID. Clarified the orders about the transfer to [facility] by Dr. Moe that was made yesterday, but per Dr. Schuler patient is NOT moving to [facility] today and will be reevaluated tomorrow by primary MD. Dr. Schuler wants infection MD to reevaluate about the COVID medications since patient is COVID negative. No new orders noted at the moment, will continue to monitor and reinforce if needed throughout the shift.
[2021-05-09] MEDS: AZITHROMYCIN 500 MG in NS 250 ML IV SCH (17:43)
[2021-05-09] MEDS: DEXAMETHASONE SOD PHOSPHATE 10 MG/ML VIAL IVP SCH (17:59)
[2021-05-10] VITALS (29 sets, daily range): BP systolic 103–154
--- NOTE | 2021-05-10 | NUR ---
RN NOTES BS - 109 MG/DL. NO COVERAGE GIVEN
--- NOTE | 2021-05-10 05:05 | NUR ---
RN NOTES AM CARE DONE, PATIENT REPOSITIONED FOR COMFORT.
[2021-05-10] MEDS: levETIRAcetam 1,000 MG in NS 100 ML IV SCH ×3 (05:54→16:47)
--- NOTE | 2021-05-10 06:00 | NUR ---
RN NOTES BS - 111 MG/DL. NO COVERAGE GIVEN.
[2021-05-10 06:36] LABS: BASOPHILS % (AUTO) 0.5 % (0.0-2.0); EOSINOPHILS % (AUTO) 0.3 % (0.0-4.0); HEMATOCRIT 42.3 % (36-54); HEMOGLOBIN 14.6 g/dL (14.0-18.0); LYMPHOCYTES # (AUTO) 1.6 K/uL (1.0-5.5); LYMPHOCYTES % (AUTO) 15.7 % (20.5-51.5); MEAN CORPUSCULAR HEMOGLOBIN 31 pg (27-31); MEAN CORPUSCULAR HGB CONC 34 % (32-36); MEAN CORPUSCULAR VOLUME 90 fL (79.0-98.0); MONOCYTES # (AUTO) 1.1 K/uL (0.0-1.0); MONOCYTES % (AUTO) 10.8 % (1.7-9.3); NEUTROPHILS # (AUTO) 7.2 K/uL (1.8-7.7); NEUTROPHILS % (AUTO) 72.7 % (40.0-70.0); PLATELET COUNT (AUTO) 205 K/uL (130-430); RED BLOOD CELL COUNT(AUTO) 4.72 MIL/uL (4.2-6.2); RED CELL DISTRIBUTION WIDTH 13.3 % (9.0-15.0); WHITE BLOOD COUNT (AUTO) 9.9 K/uL (4.8-10.8)
[2021-05-10 07:25] LABS: CALCIUM 8.3 mg/dL (8.4-11.0); CREATININE 0.74 mg/dL (0.55-1.30); POTASSIUM 3.8 mmol/L (3.5-5.1)
--- NOTE | 2021-05-10 08:00 | NUR ---
pt recieved with eyes open but not following commands/pt has good cough and eye reflexes but not tracking with eyes or acknowledging anyone//mw
[2021-05-10] MEDS: TOPIRAMATE 100 MG TABLET(Topamax) PO SCH (08:18)
[2021-05-10] MEDS: ENOXAPARIN SODIUM 40 MG/0.4 ML SYRINGE SUBCUT SCH ×2 (08:19→23:48)
[2021-05-10] MEDS: CHOLECALCIFEROL (VITAMIN D3) 5,000 UNIT TABLET PO SCH (08:20)
[2021-05-10] MEDS: ASCORBIC ACID 500 MG TABLET PO SCH ×2 (08:20→22:30)
[2021-05-10] MEDS: D5/0.45 NS 1,000 ML IV SCH (11:39)
[2021-05-10] MEDS: DEXAMETHASONE SOD PHOSPHATE 10 MG/ML VIAL IVP SCH (16:09)
[2021-05-10] MEDS: AZITHROMYCIN 500 MG in NS 250 ML IV SCH (17:32)
--- NOTE | 2021-05-10 20:00 | NUR ---
PATIENT WAS ACCEPTED ASSESS DONE , PATIENT COLO RED FLUSH FACE, HIS WHOLE BODY, DIAPHORTIC HR 170 BP 150/90 ON VENT DESAT 81 AND WAS HAVING TRMOSUE WAS VERY SEVERE AGITATE LAYING IN VERY LARGE AMOUNT OF BROWN STOOL WHICH WAS EVRY WEAR NEED THE G SOPRAPUBIC TUBE STOOL WAS IN EVEWHERE WAS SHAKING SO BAD PATIENT MAY HAD COD , NOTICE GT SITE THE SKIN WAS RED WITH SOME TUBE FEEDIMG AROUND THE TUBE SKIN CARE WAs given clean all area of ,two hour to clean the patient and change bed patient had temp 99.6 oral care was given , thick white secretion FROM THE ORAL CAVITY , NEED ORAL CARE, STABLE
[2021-05-11] VITALS (25 sets, daily range): BP systolic 103–143
[2021-05-11] MEDS: D5/0.45 NS 1,000 ML IV SCH ×2 (00:45→13:28)
[2021-05-11] MEDS: levETIRAcetam 1,000 MG in NS 100 ML IV SCH ×5 (01:00→23:59)
--- NOTE | 2021-05-11 02:00 | NUR ---
PATIENT WAS RESTING NO STOOL AT THIS TIME URINE MAAITAIN TUBE FEEDING IN PLACE and patent with water flush, on vent and depended stable will contined with [plan of care, stable
--- NOTE | 2021-05-11 05:30 | NUR ---
PATIENT IS , HAS NO DRIP [facility] FOR COVID19 WILL CONTINUED WITH PLAN OF CARE.
[2021-05-11 06:34] LABS: BASOPHILS # (AUTO) 0.1 K/uL (0.0-0.2); BASOPHILS % (AUTO) 0.5 % (0.0-2.0); EOSINOPHILS % (AUTO) 0.3 % (0.0-4.0); HEMOGLOBIN 13.4 g/dL (14.0-18.0); LYMPHOCYTES # (AUTO) 1.7 K/uL (1.0-5.5); LYMPHOCYTES % (AUTO) 15.7 % (20.5-51.5); MEAN CORPUSCULAR HEMOGLOBIN 31 pg (27-31); MEAN CORPUSCULAR HGB CONC 34 % (32-36); MEAN CORPUSCULAR VOLUME 90 fL (79.0-98.0); MONOCYTES # (AUTO) 0.9 K/uL (0.0-1.0); MONOCYTES % (AUTO) 8.4 % (1.7-9.3); NEUTROPHILS # (AUTO) 8.2 K/uL (1.8-7.7); NEUTROPHILS % (AUTO) 75.1 % (40.0-70.0); PLATELET COUNT (AUTO) 201 K/uL (130-430); RED BLOOD CELL COUNT(AUTO) 4.32 MIL/uL (4.2-6.2); RED CELL DISTRIBUTION WIDTH 13.5 % (9.0-15.0)
[2021-05-11 07:25] LABS: ALBUMIN 2.9 g/dL (3.4-4.8); CALCIUM 7.8 mg/dL (8.4-11.0); CREATININE 0.67 mg/dL (0.55-1.30); POTASSIUM 3.4 mmol/L (3.5-5.1); TOTAL BILIRUBIN 0.2 mg/dL (0.0-1.0)
--- NOTE | 2021-05-11 07:55 | NUR ---
Assumed pt care report received from Sammi KIM met pt tach to vent eyes open unable to follow command vitals signs stable afebrile will continue to monitor and treat as per care plan
[2021-05-11] MEDS: CHOLECALCIFEROL (VITAMIN D3) 5,000 UNIT TABLET PO SCH (09:00)
[2021-05-11] MEDS: TOPIRAMATE 100 MG TABLET(Topamax) PO SCH ×2 (09:00→21:01)
[2021-05-11] MEDS: ASCORBIC ACID 500 MG TABLET PO SCH ×2 (10:41→21:01)
[2021-05-11] MEDS: ENOXAPARIN SODIUM 40 MG/0.4 ML SYRINGE SUBCUT SCH ×2 (10:46→21:01)
--- NOTE | 2021-05-11 13:09 | NUR ---
Just informed by Cinthya KIMmanager patient that pt is non transferable back to [place] as per public health office.
--- NOTE | 2021-05-11 13:45 | NUR ---
Notified Dr Moe that K lab was 3.4 order received for replacement 40meq supplement via G tube. Addendum: 05/11/21 at 1413 by Sharif handle bender At ritika same time MD aware that pt's discharge/transfer to [facility] was cancelled.
[2021-05-11] MEDS ORDERED: POTASSIUM CHLORIDE 20 MEQ/PKT PACKET PO ONE (14:15)
--- NOTE | 2021-05-11 14:47 | NUR ---
Discharge Planning: DCP followed up with pt referral to [facility] [phone], per [place] public health nurse will permit pt back on Tuesday, Rm to be given.
--- NOTE | 2021-05-11 17:10 | NUR ---
Dr Moe rounds at the bedside updates on pt's condition ongoing treatments pt's response to care and order received to transfer pt to telemetry unit.
[2021-05-11] MEDS: DEXAMETHASONE SOD PHOSPHATE 10 MG/ML VIAL IVP SCH (18:01)
--- NOTE | 2021-05-11 19:15 | NUR ---
SBAR report received from day RN, all cares assumed. Pt trach to vent. Bed low and locked position.
--- NOTE | 2021-05-11 19:40 | NUR ---
Change of shift repport given to Verna KIM updates at the bedside no chnages in pt's condition and care plan.
[2021-05-12] VITALS (11 sets, daily range): BP systolic 105–150
[2021-05-12] MEDS: levETIRAcetam 1,000 MG in NS 100 ML IV SCH ×3 (05:32→18:17)
[2021-05-12] MEDS: D5/0.45 NS 1,000 ML IV SCH ×2 (05:32→17:00)
[2021-05-12 06:19] LABS: BASOPHILS # (AUTO) 0.1 K/uL (0.0-0.2); BASOPHILS % (AUTO) 0.4 % (0.0-2.0); EOSINOPHILS % (AUTO) 0.1 % (0.0-4.0); HEMATOCRIT 45.1 % (36-54); HEMOGLOBIN 15.2 g/dL (14.0-18.0); LYMPHOCYTES # (AUTO) 1.9 K/uL (1.0-5.5); LYMPHOCYTES % (AUTO) 14.1 % (20.5-51.5); MEAN CORPUSCULAR HEMOGLOBIN 31 pg (27-31); MEAN CORPUSCULAR HGB CONC 34 % (32-36); MEAN CORPUSCULAR VOLUME 91 fL (79.0-98.0); MONOCYTES # (AUTO) 0.9 K/uL (0.0-1.0); MONOCYTES % (AUTO) 6.6 % (1.7-9.3); NEUTROPHILS # (AUTO) 10.7 K/uL (1.8-7.7); NEUTROPHILS % (AUTO) 78.8 % (40.0-70.0); PLATELET COUNT (AUTO) 265 K/uL (130-430); RED BLOOD CELL COUNT(AUTO) 4.97 MIL/uL (4.2-6.2); RED CELL DISTRIBUTION WIDTH 13.6 % (9.0-15.0); WHITE BLOOD COUNT (AUTO) 13.5 K/uL (4.8-10.8)
[2021-05-12 06:40] LABS: ALBUMIN 3.5 g/dL (3.4-4.8); CALCIUM 8.7 mg/dL (8.4-11.0); CREATININE 0.65 mg/dL (0.55-1.30); POTASSIUM 4.2 mmol/L (3.5-5.1)
--- NOTE | 2021-05-12 07:15 | NUR ---
Change of shift report received from Verna KIM updates at the bedside pt's vital signs stable afebrile trach to vent FIO2 30% O2 SAT 99% oral care deep trach suctioning and repositioned for comfort
[2021-05-12 07:59] LABS: TOTAL BILIRUBIN 0.5 mg/dL (0.0-1.0)
--- NOTE | 2021-05-12 08:10 | NUR ---
During pt's assessment noted PEG TUBE site oozing blood increase area of redness this was different from previous day assessment call sent out for Dr PABLO.
--- NOTE | 2021-05-12 08:32 | NUR ---
Dr Robertson responded to call for Dr Bello notified MD of PEG tube assessment redness and blood oozing at the site. MD said he will be coming to see patient.
--- NOTE | 2021-05-12 09:05 | NUR ---
Dr Robertson came to the bedside assessed the GT deflated the tube and reinflated back again. For skin redness said to apply ZINC OXIDE, cover with gauze in between the device and abdominal wall.
[2021-05-12] MEDS: ENOXAPARIN SODIUM 40 MG/0.4 ML SYRINGE SUBCUT SCH ×2 (09:53→21:52)
[2021-05-12] MEDS: CHOLECALCIFEROL (VITAMIN D3) 5,000 UNIT TABLET PO SCH (09:54)
[2021-05-12] MEDS: TOPIRAMATE 100 MG TABLET(Topamax) PO SCH ×2 (09:54→21:51)
[2021-05-12] MEDS: ASCORBIC ACID 500 MG TABLET PO SCH ×2 (09:54→21:51)
--- NOTE | 2021-05-12 12:29 | NUR ---
Nutrition F/U Admit Dx: COVID Pneumonia RD reviewed pt's current EMR including diet Hx, physician notes, nursing notes, pertinent labs/meds/procedures, care trends and care activity. Current Diet Order/Nutrition Support: Glucerna 1.5 at 50ml/hr, FWF 200ml Q6H via GT Subjective information: Short note d/t high pt load. Pt is in room 127A/ICU9. RD bedside visit was deferred d/t COVID isolation. RD rounded to ICU, but was told that RN is inside the pt's room, providing care. Per GI note, on 05/07 new GT was placed at bedside, and today (05/12), it was reported to MD that GT has been leaking, GI resolved issue at bedside and ordered for EN to resume. 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 Stool output 850ml. Luis A scale: 13. Per right of way appraiser: pt w/ rash to anterior sacrum, 1+ pitting edema to left hand. Abdomen is soft w/ active bowel sounds. EN rate: 30ml (1/); GRV: 0ml (1/). Pt has not met nutrient needs d/t EN being held 2/2 leaking GT. Current EN regimen provides: 2106 Kcal, 99 gm protein and 1711ml fluids daily which meets 121% of calorie needs and 92% of lower estimated protein needs. Dietitian Recommendations * Glucerna 1.5 at 50 ml/hr, Free Water Flush: 200 ml Q6h via GT Provides: 1800 kcal/day, 99 gm protein/day, and 1711 ml free water/day Meets: 104% of estimated caloric needs and 92% of lower end of estimated protein needs * Consider D/C D5%1/2NS at 75 ml/hr (306 kcal/day) RD to follow per nutrition care standards. KELL, RD
--- NOTE | 2021-05-12 14:27 | NUR ---
PT is telemetry status and being monitor on telemetry unit change of assignment and report given to Mandy RN as at this time no changes in pt's condition vitals signs stable and tolerating all care well.
--- NOTE | 2021-05-12 14:40 | NUR ---
ASSUME CARE: RECEIVED REPORT FROM ICU NURSE KARISHMA.PATIENT ,MAINTAINED ON TRACH VENT,WITH FIO2=30%,WITH GOOD SATURATION.TUBE FEEDS ON GOING.SUPRAPUBIC CATH DRAINING TO YELLOW URINE. STABLE THIS TIME.
--- NOTE | 2021-05-12 15:36 | NUR ---
pt transfer to room 114 MST in bed and ventilator set up at the bedside by Janie FONTANEZ
[2021-05-12] MEDS: DEXAMETHASONE SOD PHOSPHATE 10 MG/ML VIAL IVP SCH (17:02)
--- NOTE | 2021-05-12 17:53 | NUR ---
JUDY PERLA INFORMED THAT THE PATIENT HAS BEEN OFF THE TELE MONITOR FOR 45 MINUTES
--- NOTE | 2021-05-12 18:43 | NUR ---
EVENING ROUNDS: MAINTAINED ON TRACH VENT WITH FIO2=30%,O2 SATURATION=98-99%.LEFT UPPER ARM PICC LINE ,INTACT DRESSING CLEAN AND DRY.TUBE FEEDS ON GOING.WAN DRAINING TO YELLOW URINE. BED LOCKED AT LOWEST POSITION. CONDITION GUARDED.
[2021-05-13] MEDS: levETIRAcetam 1,000 MG in NS 100 ML IV SCH ×4 (01:16→18:02)
[2021-05-13 02:43] VITALS: BP_SYST 136
[2021-05-13] MEDS: D5/0.45 NS 1,000 ML IV SCH (05:55)
--- NOTE | 2021-05-13 06:16 | NUR ---
Zulma, IVF Administered due meds; PICC is patent and meds infusing well.
[2021-05-13] MEDS: ASCORBIC ACID 500 MG TABLET PO SCH ×2 (09:47→21:02)
[2021-05-13] MEDS: TOPIRAMATE 100 MG TABLET(Topamax) PO SCH ×2 (09:47→21:02)
[2021-05-13] MEDS: ENOXAPARIN SODIUM 40 MG/0.4 ML SYRINGE SUBCUT SCH ×2 (09:48→21:03)
[2021-05-13] MEDS: CHOLECALCIFEROL (VITAMIN D3) 5,000 UNIT TABLET PO SCH (09:54)
[2021-05-13 12:54] VITALS: BP_SYST 130
[2021-05-13 16:00] VITALS: BP_SYST 134
[2021-05-13] MEDS: DEXAMETHASONE SOD PHOSPHATE 10 MG/ML VIAL IVP SCH (18:03)
--- NOTE | 2021-05-13 18:30 | NUR ---
Outcome Summary pt nonverbal, resting comfortably, seizure precautions maintained. No s/sx of pain or distress. Sating >96% via trach ventilation FiO2 30%, Tidal volume 650, Peep 5. Moderate clear thick secretions suctioned PRN. SR-ST 100s on tele. NPO, TF continued @ 50ml/hr via gtube, tolerating well, no leakage. Suprapubic fc intact, dependent to drainage, adequate urine output. No bowel movement this shift. Turned q2, heels elevated, barrier cream applied to gtube che-skin. IVFs + IV abx continued, PICC dressing c/d/i. All needs met, safety, and comfort measures maintained, hourly. NR, RN.
--- NOTE | 2021-05-13 19:20 | NUR ---
OPENING NOTE PT IN BED VENTILATOR ALARMING. SECRETIONS HEARD, SUCTIONING PROVIDED. PT TOLERATED WELL. VITAL TAKEN AND STABLE, AFEBRILE. G-TUBE RUNNING AT ORDERED SETTING, VENTILATOR SETTINGS ORDERED. PT BED IN LOWEST POSITION WITH STANDARD AND FALL PRECAUTIONS IN PLACE.
[2021-05-13 21:01] VITALS: BP_SYST 134
--- NOTE | 2021-05-13 21:20 | NUR ---
PT CARE SCHEDULED MEDS GIVEN VIA G-TUBE, 15 ML RESIDUAL. ORAL CARE AND SUCTIONING PROVIDED, PT TOLERATED WELL. PT RESTING IN BED AT LOWEST POSITION, SAFETY AND SEIZURE PRECAUTIONS IN PLACE.
[2021-05-14] VITALS (7 sets, daily range): BP systolic 117–152
[2021-05-14] MEDS: levETIRAcetam 1,000 MG in NS 100 ML IV SCH ×5 (00:11→23:47)
--- NOTE | 2021-05-14 00:15 | NUR ---
Zulma, IVF Administered due meds; PICC is patent and meds infusing well.
--- NOTE | 2021-05-14 02:25 | NUR ---
VENT CARE VENTILATOR WAS ALARMING. ORAL AND TRACH SUCTIONING PROVIDED. PT TOLERATED WELL. VENT SETTINGS ORDERED. PTS BED IS IN LOWEST POSITION WITH FALL AND SEIZURE PRECAUTIONS IN PLACE. SPC IS DRAINING TO GRAVITY.
[2021-05-14] MEDS: D5/0.45 NS 1,000 ML IV SCH ×3 (03:37→23:47)
--- NOTE | 2021-05-14 04:10 | NUR ---
PICC line dressing change PICC line dressing change with use of sterile technique per hospital policy.
--- NOTE | 2021-05-14 07:26 | NUR ---
CLOSING NOTE PT IN BED, VENTILATOR SETTINGS ORDERED. PT BED STABLE, BED IN LOWEST POSITION WITH SEIZURE, ASPIRATION AND FALL PRECAUTIONS IN PLACE. CARE ENDORSED
[2021-05-14 08:03] LABS: BASOPHILS % (AUTO) 0.3 % (0.0-2.0); EOSINOPHILS % (AUTO) 0.2 % (0.0-4.0); HEMATOCRIT 48.3 % (36-54); HEMOGLOBIN 16.2 g/dL (14.0-18.0); LYMPHOCYTES # (AUTO) 2.1 K/uL (1.0-5.5); LYMPHOCYTES % (AUTO) 13.3 % (20.5-51.5); MEAN CORPUSCULAR HEMOGLOBIN 30 pg (27-31); MEAN CORPUSCULAR HGB CONC 34 % (32-36); MEAN CORPUSCULAR VOLUME 90 fL (79.0-98.0); MONOCYTES # (AUTO) 1.3 K/uL (0.0-1.0); MONOCYTES % (AUTO) 7.8 % (1.7-9.3); NEUTROPHILS # (AUTO) 12.6 K/uL (1.8-7.7); NEUTROPHILS % (AUTO) 78.4 % (40.0-70.0); PLATELET COUNT (AUTO) 276 K/uL (130-430); RED BLOOD CELL COUNT(AUTO) 5.38 MIL/uL (4.2-6.2); RED CELL DISTRIBUTION WIDTH 13.6 % (9.0-15.0)
[2021-05-14 08:20] LABS: CALCIUM 8.9 mg/dL (8.4-11.0); CREATININE 0.57 mg/dL (0.55-1.30); POTASSIUM 3.7 mmol/L (3.5-5.1)
[2021-05-14] MEDS: ENOXAPARIN SODIUM 40 MG/0.4 ML SYRINGE SUBCUT SCH ×2 (09:55→23:49)
[2021-05-14] MEDS: TOPIRAMATE 100 MG TABLET(Topamax) PO SCH ×2 (09:59→23:46)
[2021-05-14] MEDS: CHOLECALCIFEROL (VITAMIN D3) 5,000 UNIT TABLET PO SCH (09:59)
[2021-05-14] MEDS: ASCORBIC ACID 500 MG TABLET PO SCH ×2 (09:59→23:46)
[2021-05-14] MEDS: LORazepam 2 MG/ML VIAL IVP SCH (17:30)
[2021-05-14] MEDS: DEXAMETHASONE SOD PHOSPHATE 10 MG/ML VIAL IVP SCH (17:31)
[2021-05-14] MEDS ORDERED: MORPHINE 4 MG INJ. 4 MG/ML VIAL IVP ONE (18:15)
[2021-05-14] MEDS ORDERED: MORPHINE 2 MG/ML INJ. SYRINGE IVP PRN (18:30)
--- NOTE | 2021-05-14 19:05 | NUR ---
Outcome Summary Pt nonverbal, quadriplegic, seizure precautions maintained. VSS. Afebrile. Restless at times, pulls at gtube, morphine x1, ativan x1 with effective relief. Trach to vent ac 12, FiO2 30%, TV 650, peep 5, sating >97%, suctioned prn for moderate amount of thick clear sections. SR-ST high of 150s unsustained, MD aware. NPO, TF via gtube continued, BG monitored ACHS. Suprapubic fc intact, adequate urine output. No bowel movement this shift. Turned q2, heels elevated, skin barrier applied to macerated g-tube che-area. IVFs + iv abx continued, PICC dressing c/d/i. All needs met, safety and comfort measures maintained, call light within reach. NR, RN.
[2021-05-15] VITALS (7 sets, daily range): BP systolic 123–146
[2021-05-15] MEDS: levETIRAcetam 1,000 MG in NS 100 ML IV SCH ×3 (05:53→17:57)
--- NOTE | 2021-05-15 06:00 | NUR ---
pt.assessed.oral/trach care suction attended to.picc line,g-tube,supra-pubic cath intact.pt.cleaned repositioned.i have attended to wound care.dsg changes g-tube supra-pubic cath.02%=98%.call light/telephone placed w/in access of the pt.pt.weighed 2/t chf hx.
[2021-05-15] MEDS: ASCORBIC ACID 500 MG TABLET PO SCH ×2 (09:08→22:23)
[2021-05-15] MEDS: TOPIRAMATE 100 MG TABLET(Topamax) PO SCH ×2 (09:08→22:22)
[2021-05-15] MEDS: ENOXAPARIN SODIUM 40 MG/0.4 ML SYRINGE SUBCUT SCH ×2 (09:09→22:24)
[2021-05-15] MEDS: CHOLECALCIFEROL (VITAMIN D3) 5,000 UNIT TABLET PO SCH (09:09)
[2021-05-15] MEDS: D5/0.45 NS 1,000 ML IV SCH (11:02)
--- NOTE | 2021-05-15 13:05 | NUR ---
Nutrition F/U Admitting Diagnosis: COVID pneumonia Medical History Comment: HTN, chronic encephalopathy, chronic respiratory failure, seizure disorder per physician notes Pt also found w/ complicated UTI per physician notes SARS-CoV-2 Ag (Rapid) Positive 05/05 & (PCR) Negative 05/07 Subjective Information: Pt was seen in bed, aphasic on vent support, EN infusing at 45ml. RD s/w RN who reported no issues overnight, RN to check if pt has not had a BM x5days as discussed by this RD. Dextrose continues to infuse per MD. Per EMR review, on 05/12, GI evaluated pt for GT leak and issues has been resolved since. Pt has been tolerating EN well since. EN rate: 05/14 50ml, GRV: 0 (05/14). Last BM 05/10 x1, abdomen is firm and distended w/ hypoactive bowel sounds. Luis A scale: 9, per electronic systems security assessment, pt w/ pale skin color, wound to anterior sacrum, 1+ pitting edema to left hand and generalized. Current EN regimen remains adequate and appropriate. Current Diet Order/Nutrition Support: Glucerna 1.2 at 50 ml/hr, Free Water Flush: 150 Q 8HR via GT x7 days Pertinent Medications: VIT D3, zinc, VIT C, lovenox, decadron, D5%1/2NS at 75 ml/hr (306 kcal/day), SSI Pertinent Labs 05/14 Na 140, K 3.7, BG 92, POC BG 95, BUN 15, Cre 0.57 Height (Feet) 5 feet Height (Inches) 9.00 inches NEW WT: 05/15: 163#/ 74kg Weight (Pounds) --upon admission 158 pounds Body Mass Index 23.33 kg/m2. NEW: 24.1 kg/m2. [place]/Adjusted Body Weight 160#/73 kg NEW Estimated Energy Expenditure (kcals/day) 8998-0891 (25-30 kcal/kg CBW for adult maintenance) NEW Estimated Protein Required (g/day) 74-89 (1-1.2 gm/kg CBW d/t adult maintenance) NEW Estimated Fluid Required (l/day) 1.9-2.2 (1 ml/kcal/day for maintenance) Problem/Etiology/Signs/Symptoms Altered GI function r/t delayed motility AEB no BM x5 days. (*new) Inadequate EN support R/T metabolic demands AEB current TF prescription meets <80% of estimated nutritional requirements for critical illness/acute state. (*improved) Expected Outcomes/Goals - Monitor tolerance to EN support w/ goal of pt meeting >80% of estimated nutritional needs, labs trending WNL, normal GI function, and skin integrity/wt maintenance Dietitian Recommendations * Recommend: add stool softener. * Continue Glucerna 1.5 at 50 ml/hr, Free Water Flush: 200 ml Q6h via GT Provides: 1800 kcal/day, 99 gm protein/day, and 1711 ml free water/day Meets: 97% of estimated caloric needs and 111% of upper end of estimated protein needs * Consider D/C D5%1/2NS at 75 ml/hr (306 kcal/day) Follow Up High Risk: F/U in 2-3days
--- NOTE | 2021-05-15 13:12 | NUR ---
Dietitian Recommendations * Recommend: add stool softener. * Continue Glucerna 1.5 at 50 ml/hr, Free Water Flush: 200 ml Q6h via GT Provides: 1800 kcal/day, 99 gm protein/day, and 1711 ml free water/day Meets: 97% of estimated caloric needs and 111% of upper end of estimated protein needs * Consider D/C D5%1/2NS at 75 ml/hr (306 kcal/day) KELL, RD
--- NOTE | 2021-05-15 14:04 | NUR ---
Discharge Planning: TOSHIAP arranged transport with [facility] [phone] 1000am P/U 05/16/2021 to [facility] [phone] Rm 43. DCP made CM aware.
[2021-05-15] MEDS: DEXAMETHASONE SOD PHOSPHATE 10 MG/ML VIAL IVP SCH (17:56)
[2021-05-16] MEDS: levETIRAcetam 1,000 MG in NS 100 ML IV SCH ×3 (06:32)
[2021-05-16 07:36] LABS: BASOPHILS # (AUTO) 0.1 K/uL (0.0-0.2); BASOPHILS % (AUTO) 0.3 % (0.0-2.0); EOSINOPHILS % (AUTO) 0.2 % (0.0-4.0); HEMATOCRIT 47.6 % (36-54); HEMOGLOBIN 15.9 g/dL (14.0-18.0); LYMPHOCYTES # (AUTO) 1.5 K/uL (1.0-5.5); LYMPHOCYTES % (AUTO) 9.9 % (20.5-51.5); MEAN CORPUSCULAR HEMOGLOBIN 30 pg (27-31); MEAN CORPUSCULAR HGB CONC 33 % (32-36); MEAN CORPUSCULAR VOLUME 90 fL (79.0-98.0); MONOCYTES % (AUTO) 6.4 % (1.7-9.3); NEUTROPHILS # (AUTO) 12.6 K/uL (1.8-7.7); NEUTROPHILS % (AUTO) 83.2 % (40.0-70.0); PLATELET COUNT (AUTO) 302 K/uL (130-430); RED BLOOD CELL COUNT(AUTO) 5.29 MIL/uL (4.2-6.2); RED CELL DISTRIBUTION WIDTH 13.6 % (9.0-15.0); WHITE BLOOD COUNT (AUTO) 15.2 K/uL (4.8-10.8)
[2021-05-16 08:00] VITALS: BP_SYST 125
--- NOTE | 2021-05-16 08:09 | NUR ---
Received pt from [facility] RN. PT TO TRANSFER AT 1000, RECEIVED VERBAL CONSENT FROM MAISHA LO CUPOLA OPERATOR INSULATION PT OKAY TO TRANSFER TODAY TO [facility], ROOM 43 WAS ENDORSED TO ME. SECOND NURSE JUDY SEBASTIAN VERIFIED CONSENT. CALLED TO GIVE REPORT TO [facility], SPOKE TO OMAR TO AND SHE STATED SHE WAS NOT AWARE OF THE TRANSFER SHE WILL FOLLOW UP AND CALL THIS RN BACK AUREA. PT IS AA0X1 TO SELF, PT IS ON TELE 28 READING NSR. RESP E/U. SHALLOW, LUNG SOUNDS DIMINISHED BILATERALLY. TRACH TO VENT SETTINGS AC VC TV 650, PEEP 5, RR 12, FI02 30% PT HAS GTUBE WITH TF RUNNING AT 50CC/HOUR WITH 200 FWF Q 6 HRS. BOWEL SOUNDS ACTIVE X4. SUPRA PUBIC CATHERTER IN PLACE DRAINING CLEAR YELLOW URINE. SKIN WARM, PT CONTRACTED BLE AND BUE WITH EDEMA NOTED. PIC LINE TO JEFF WITH D5 1/2 RUNNING AT 75ML/HOUR. NO S/S OF PAIN NOTED. ASPIRATION PRECAUTIONS IN PLACE.
[2021-05-16 08:19] LABS: CALCIUM 8.6 mg/dL (8.4-11.0); CREATININE 0.59 mg/dL (0.55-1.30); POTASSIUM 3.6 mmol/L (3.5-5.1)
[2021-05-16] MEDS: ENOXAPARIN SODIUM 40 MG/0.4 ML SYRINGE SUBCUT SCH (09:00)
[2021-05-16] MEDS: CHOLECALCIFEROL (VITAMIN D3) 5,000 UNIT TABLET PO SCH (09:00)
--- NOTE | 2021-05-16 09:00 | NUR ---
SPOKE TO JUDY NELSON AT [facility] AND GAVE REPORT PT TO LEAVE TODAY AT 1000 VIA [facility], TO GO TO ROOM 43. ALL QUESTIONS AND CONCERNS ADDRESSED.
[2021-05-16] MEDS: ASCORBIC ACID 500 MG TABLET PO SCH (10:01)
[2021-05-16] MEDS: TOPIRAMATE 100 MG TABLET(Topamax) PO SCH (10:01)
[2021-05-16 11:10] VITALS: BP_SYST 125
--- NOTE | 2021-05-16 11:53 | NUR ---
PT TRANSFERRED TO [facility] VIA [facility], MARLEE EMT GIVEN PT'S DISCHARGE PACKET. JUDY NELSON AT [facility] MADE AWARE OF DISCHARGE. PT GIVEN CENTRAL LINE DRESSING CHANGE PRIOR TO DISCHARGE. PICC LINE S/L, T/F REMOVED AND MAURY VALVE FLUSHED. PT SHOWED NO SS OF PAIN UPON DISCHARGE AND HAD ON PERSONAL BELONGINGS TO TAKE WITH HIM.
== END 2021-05-16 11:53 | DRG 53 ==
LOC: SED 21:40 → SIC 05-06 00:35 → STU 05-12 12:30
PROVIDERS: ADMIT Family Medicine; ATTEND Family Medicine
PROC: 5A1955Z Respiratory Ventilation, Greater than 96 Consecutive Hours (ICD-10-PCS; principal; 2021-05-06)
PROC: 06H033Z Insertion of Infusion Device into Inferior Vena Cava, Percutaneous Approach (ICD-10-PCS; 2021-05-06)
PROC: 0D20XUZ Change Feeding Device in Upper Intestinal Tract, External Approach (ICD-10-PCS; 2021-05-07)
DX: G40.901 Epilepsy, unspecified, not intractable, with status epilepticus (principal); J18.9 Pneumonia, unspecified organism; U07.1 COVID-19; J96.10 Chronic respiratory failure, unspecified whether with hypoxia or hypercapnia; K94.23 Gastrostomy malfunction; Z99.11 Dependence on respirator [ventilator] status; Z93.0 Tracheostomy status; G80.9 Cerebral palsy, unspecified; Z20.822 Contact with and (suspected) exposure to COVID-19; N39.0 Urinary tract infection, site not specified; R13.10 Dysphagia, unspecified; I10 Essential (primary) hypertension; Z79.899 Other long term (current) drug therapy
CPT/HCPCS: 36415; 36600; 70450-TC; 71045; 74240-TC; 76376; 80048; 80053; 80307; 81000; 82728; 82803-TC; 82962; 83036; 85025; 85379; 86140; 87040; 87070-TC; 87081; 87086; 87205-TC; 94002; 94003; 94640; 94760; 95816; 96365; 96368; 96375; 99285; J0456; J0696; J1100; J1650; J1815; J1953; J2060; J2185; J2270; J2543; J3370; J7050; J7060; Q9963; U0003

== ENCOUNTER 2021-09-07 20:59 | Inpatient (IN) | payer BC ==
[~2021-09-07] VITALS: Ht 165.1 cm; Wt 81.6 kg
[2021-09-07 21:00] VITALS: BP_SYST 96
--- NOTE | 2021-09-07 21:00 | NUR ---
Placed in room 07 . Placed on inclusion special educator, blood pressure machine and pulse oximeter. To gown for exam. Side rails up. Report given to JUDY FARAH
[2021-09-07] MEDS ORDERED: PIPERACILLIN/TAZO 4.5 GM in NS 100 ML IV ONE (21:15)
[2021-09-07] MEDS ORDERED: ACETAMINOPHEN 500 MG TABLET GT ONE (21:15)
[2021-09-07 22:08] LABS: PLATELET COUNT (AUTO) 172 K/uL (130-430)
[2021-09-07 22:13] LABS: MEAN CORPUSCULAR HEMOGLOBIN 31 pg (27-31); MEAN CORPUSCULAR HGB CONC 33 % (32-36); MEAN CORPUSCULAR VOLUME 94 fL (79.0-98.0); RED BLOOD CELL COUNT(AUTO) 5.76 MIL/uL (4.2-6.2); WHITE BLOOD COUNT (AUTO) 18.3 K/uL (4.8-10.8)
[2021-09-07 22:14] LABS: ANION GAP 17 (5-15); CALCIUM 8.9 mg/dL (8.4-11.0); CHLORIDE 98 mmol/L (98-107); CREATININE 1.66 mg/dL (0.55-1.30); GLUCOSE 124 mg/dL (70-99); POTASSIUM 3.5 mmol/L (3.5-5.1); SODIUM SERUM 135 mmol/L (136-145); UREA NITROGEN, BLOOD 16 mg/dL (8-21)
[2021-09-07 22:19] LABS: INR 1.2 (0.80-1.20); PROTHROMBIN TIME 12.1 SECS (9.5-12.5)
[2021-09-07 22:27] LABS: ALANINE AMINOTRANSFERASE 20 U/L (12-78); ALBUMIN 2.9 g/dL (3.4-4.8); ASPARTATE AMINOTRANSFERASE 25 U/L (10-37); TOTAL BILIRUBIN 2.4 mg/dL (0.0-1.0)
[2021-09-07 22:35] LABS: GFR AFRICAN AMERICAN 61 mL/min (>90)
[2021-09-07] MEDS ORDERED: PIPERACILLIN/TAZOBACTAM 4.5 GM/VIAL (ZOSYN) IV ONE (22:41)
[2021-09-07 22:42] LABS: BAND % (MANUAL) 19 % (0-6); BASOPHILS % (MANUAL) 0 % (0-2); EOSINOPHILS % (MANUAL) 1 % (0-7); LYMPHOCYTES % (MANUAL) 1 % (20-46); MONOCYTES % (MANUAL) 1 % (0-11)
[2021-09-07 22:43] LABS: WBC MORPHOLOGY TOXIC VACUOLATION
[2021-09-07] MEDS ORDERED: VANCOMYCIN HCL 1000 MG/VIAL IV ONE (22:43)
[2021-09-07] MEDS ORDERED: NACL 0.9% 3,000 ML IV ONE (22:45)
[2021-09-07] MEDS ORDERED: KETOROLAC TROMETHAMINE 30 MG VIAL IVP ONE (22:45)
[2021-09-07] MEDS ORDERED: VANCOMYCIN HCL 1,000 MG in NS 250 ML IV ONE (22:45)
[2021-09-07 23:00] LABS: C-REACTIVE PROTEIN QUANT 33.4 mg/dL (0-0.5)
[2021-09-07 23:00] LABS: BILIRUBIN,URINE NEGATIVE (NEGATIVE); CLARITY/URINE CLEAR (CLEAR); COLOR,URINE YELLOW (YELLOW); GLUCOSE,URINE NEGATIVE (NEGATIVE); KETONES,URINE TRACE (NEGATIVE); LEUKOCYTE ESTERASE ,URINE 1+ (NEGATIVE); NITRITE, URINE NEGATIVE (NEGATIVE); PROTEIN URINE 1+ (NEGATIVE)
--- NOTE | 2021-09-07 23:09 | NUR ---
Patient is a 36-year-old, vent dependent, male with history of cerebral palsy brought in by ambulance to the ED from [facility] for evaluation of sepsis rule out. In route, patient was tachycardic with heart rate noted to be in the 160s, febrile with a temperature of 103 F. POLST form was reviewed and patient is full CODE STATUS. ALL IV ANTIOBIOTIC MEDS GIVEN AND NS BOLUS STARTED. CARE RESUMED ADN DR. MARQUIS OF PT.
--- NOTE | 2021-09-07 23:09 | NUR ---
20G IV STARTED IB LAC
--- NOTE | 2021-09-07 23:14 | NUR ---
PT HAS X2 BM THE FIRST WAS LIQUID. THE SECOND IS MORE FORMED.
[2021-09-07] MEDS ORDERED: levETIRAcetam 1,500 MG in NS 85 ML IV ONE (23:15)
[2021-09-07 23:22] LABS: BLOOD, URINE TRACE (NEGATIVE)
[2021-09-07 23:28] LABS: LACTATE DEHYDROGENASE 224 U/L (85-227)
[2021-09-07] MEDS ORDERED: HYDROCORTISONE SOD SUCC 100 MG/2 ML VIAL IVP ONE (23:30)
[2021-09-07 23:39] LABS: RBC,URINE 0-3 /HPF (0-3)
[2021-09-07 23:40] LABS: BACTERIA,URINE FEW /HPF (None Seen)
[2021-09-08] VITALS (24 sets, daily range): BP systolic 89–140
[2021-09-08] MEDS: D5NS 1,000 ML IV SCH ×4 (00:45→20:45)
[2021-09-08] MEDS ORDERED: NOREPINEPHRINE BITARTRATE 4 MG in NS 246 ML IV ONE (00:45)
--- NOTE | 2021-09-08 00:51 | NUR ---
Admit bed requested Patient will be admitted to care of Dr. Moe Admitted to icu unit. Diagnosis septic shock Inpatient (Yes or No) yes ] Orientation concerns or request close to nursing station (Yes or No) yes Covid Status - On vent or bipap yes Isolation requirements yes, sputum-pseudomonas aeruginosa From Home (Yes or if No enter name of facility) yes alireza heiskell Med Rec Completed (Yes of No) yes
[2021-09-08] MEDS ORDERED: PIPERACILLIN/TAZO 3.375 GM in NS 50 ML IV SCH (03:00)
[2021-09-08] MEDS ORDERED: NOREPINEPHRINE 4 MG/4 ML VIAL IV ONE ×3 (03:24→06:20)
[2021-09-08] MEDS ORDERED: PIPERACILLIN/TAZOBACTAM 3.375 GM/VIAL (ZOSYN) IV ONE (03:27)
--- NOTE | 2021-09-08 03:57 | NUR ---
gave antibiotic iv med, also started d5ns @150ml/hr, also started levophed and titrating to a map >90. iv patent and currently the levo is running at 306ml/hr= 1mcg/kg/min
--- NOTE | 2021-09-08 04:51 | NUR ---
new bag of lovephed hung 8mg/250ml concentration.
[2021-09-08] MEDS ORDERED: NOREPINEPHRINE BITARTRATE 32 MG in NS 218 ML IV PRN (05:15)
[2021-09-08 06:53] LABS: ALBUMIN 1.8 g/dL (3.4-4.8); POTASSIUM 4.3 mmol/L (3.5-5.1); TOTAL BILIRUBIN 2.8 mg/dL (0.0-1.0)
--- NOTE | 2021-09-08 06:59 | NUR ---
pt tolerated vent settings and pt frequently suctioned from trach. clear sputum, escobar patent and iv patent. care reumed, report given to sid gonzales.
--- NOTE | 2021-09-08 07:11 | NUR ---
mrsa obtained and sent to lab
--- NOTE | 2021-09-08 07:25 | NUR ---
assumed care of patient. patient admitted for sepsis to ICU. received patient from previous nurse with levophed 16mg note at 1mcg/kg/hr. pt tolerating well, vss. noted in order concentration of levophed to be at 32mg in 218ml or 4mg in 246ml of NS. levophed to be changed and fixed to appropriate order. charge nurse made aware.
--- NOTE | 2021-09-08 07:36 | NUR ---
RT NOTES 0736 Received pt on trach to vent AC 14,550VT PEEP 5, 30% FIO2. Shiley 8 XLT. PT Saturating 100%. BVM and Spare trach at bedside. no distress noted.
[2021-09-08 08:21] LABS: CREATININE 1.52 mg/dL (0.55-1.30)
--- NOTE | 2021-09-08 08:24 | NUR ---
Consult ID: Dr Kaba s/w suzanne @ [phone].
--- NOTE | 2021-09-08 08:28 | NUR ---
started patient on levophed 32mg in NS at 0.1mcg/kg/min. BP 130/89. as per order.
--- NOTE | 2021-09-08 08:32 | NUR ---
increased levophed to 0.13mcg/kg/min for BP 89/58.
--- NOTE | 2021-09-08 08:34 | NUR ---
CONSULT: MARJORIE CAMPBELL PAGED. DR. CAMPBELL CALLED BACK RIGHT AWAY AND TALKED TO JUDY SANDERS. REASON: SEPTIC SHOCK
--- NOTE | 2021-09-08 08:37 | NUR ---
increased levophed to 0.16mcg/kg/min.
--- NOTE | 2021-09-08 08:40 | NUR ---
called RT to transfer patient to ICU.
--- NOTE | 2021-09-08 08:45 | NUR ---
RT NOTES 0845 Pt moved to room 127A, Still same settings AC12,550VT PEEP 5 30% FIO2, Shiley 8XLT. Pt saturating 100%. Transport via BVM 15L. Spare trach was brought. No incident happened. Assisted JUDY Britt. will continue to monitor pt.
--- NOTE | 2021-09-08 08:45 | NUR ---
Levophed increased to 0.19 mcg/kg/hr for BP 91/59. pt tolerating well.
--- NOTE | 2021-09-08 08:50 | NUR ---
Transfer to ICU via ACLS protocol. Licensed nurse present. IV present no signs or symptoms of infiltration.
--- NOTE | 2021-09-08 09:00 | NUR ---
ADMISSION NOTE Received patient from ER via gurney. Patient admitted with diagnosis of septic shock. Patient is awake,nonverbal.trach to vent. setting ac 14, tv 550, fio2 30%, PEEP 5. ROOM assignment room number is ICU 9. Personal belongings checked and Belongings List documented. Call light within reach. bed is low and lock position. seizure precaution provided. skin check photos taken and placed at the chart. g-tube site leaking small amount.redness around the area. triad paste applied. keep hob elevated to prevent aspiration. suprapubic catheter #16 estonian redness and small bleeding noted,urine alber color with sediment.
[2021-09-08 09:26] LABS: HEMATOCRIT 46.3 % (36-54); HEMOGLOBIN 14.8 g/dL (14.0-18.0); MEAN CORPUSCULAR HEMOGLOBIN 31 pg (27-31); MEAN CORPUSCULAR HGB CONC 32 % (32-36); MEAN CORPUSCULAR VOLUME 97 fL (79.0-98.0); PLATELET COUNT (AUTO) 249 K/uL (130-430); RED BLOOD CELL COUNT(AUTO) 4.78 MIL/uL (4.2-6.2); RED CELL DISTRIBUTION WIDTH 13.7 % (9.0-15.0)
[2021-09-08 09:41] LABS: WHITE BLOOD COUNT (AUTO) 50.5 K/uL (4.8-10.8)
--- NOTE | 2021-09-08 10:00 | NUR ---
Levophed titrate to 0.17 mcg/kg/hr for BP 115/68, pulse 121. pt tolerating well.
[2021-09-08] MEDS: PIPERACILLIN/TAZO 3.375 GM in NS 50 ML IV SCH ×3 (11:29→21:31)
--- NOTE | 2021-09-08 12:00 | NUR ---
Temperature 100.6F cooling measure and tylenol via g-tube administered. turn and reposition with pillow support.
[2021-09-08] MEDS: ACETAMINOPHEN 650 MG/20.3 ML UDC GT PRN (12:19)
[2021-09-08] MEDS: MICAFUNGIN SODIUM 100 MG in NS 100 ML IV SCH (12:46)
[2021-09-08] MEDS ORDERED: BISACODYL 10 MG/SUPPOSITORY RC PRN (13:45)
[2021-09-08] MEDS ORDERED: ACETAMINOPHEN 650 MG/20.3 ML UDC GT PRN (13:45)
[2021-09-08] MEDS ORDERED: PEG 400/HYPROMELLOSE/GLYCERIN 15 ML DROPS OP PRN (13:45)
[2021-09-08] MEDS ORDERED: ALBUTEROL SULFATE 0.083% 2.5 MG/3 ML VIAL.NEB INH PRN (13:45)
--- NOTE | 2021-09-08 14:00 | NUR ---
MD BARLOW IS HERE, INFORMED ABOUT THE ALBUMIN LOW, NEW ORDER RECEIVED PROSOURCE BID VIA G-TUBE. NOTED AND CARRIED OUT.
[2021-09-08] MEDS: BACLOFEN 10 MG TABLET GT SCH ×2 (15:01→21:32)
[2021-09-08] MEDS: GABAPENTIN 100 MG CAPSULE GT SCH ×2 (15:01→21:32)
[2021-09-08 16:07] LABS: BAND % (MANUAL) 30 % (0-6); LYMPHOCYTES % (MANUAL) 0 % (20-46)
[2021-09-08 16:08] LABS: BASOPHILS % (MANUAL) 0 % (0-2); EOSINOPHILS % (MANUAL) 0 % (0-7); MONOCYTES % (MANUAL) 7 % (0-11)
[2021-09-08] MEDS ORDERED: NOREPINEPHRINE BITARTRATE 32 MG in D5W 218 ML IV PRN (18:00)
--- NOTE | 2021-09-08 18:10 | NUR ---
Dr. Kaba made aware about the blood culture result.pt of x3 iv atb therapy.
[2021-09-08] MEDS: LINEZOLID 300 ML IV SCH (18:12)
--- NOTE | 2021-09-08 18:50 | NUR ---
notes: all needs mets, no s/s of distress, on vent setting ac 12, tv 550, fio2 30%, peep 5. tolerated well 100%. iv access at left ac#20, ivf d5ns 150ml/hr, Levophed 32mg. levophed drip 0.13mcg/kg/min. bp 124/63, pulse 107. g-tube Jevity 1.2 @ 50ml/hr. no residual noted.keep hob elevated to prevent aspiration. Delgado catheter draining adequate amount. securement device on.
[2021-09-08] MEDS ORDERED: SENNOSIDES 8.6 MG GT SCH (21:00)
[2021-09-08] MEDS: DOCUSATE SODIUM 100 MG/10 ML UDC GT SCH (21:31)
[2021-09-08] MEDS: LevETIRAcetam 500 MG/5 ML UDC ORAL LIQUID GT SCH (21:31)
[2021-09-08] MEDS: TOPIRAMATE 100 MG TABLET(Topamax) GT SCH (21:32)
[2021-09-08] MEDS: HEPARIN SODIUM,PORCINE 5,000 UNITS/ML VIAL SUBCUT SCH (21:34)
[2021-09-08] MEDS: SENNA 8.8 MG/5 ML UDC GT SCH (21:37)
--- NOTE | 2021-09-08 22:28 | NUR ---
PICC LINE NURSE CAME IN AND INSERTED AN RENATA MIDLINE DOUBLE LUMEN. DOCTOR PROVIDED CONSENT D/T NOT BEING ABLE TO REACH CONSERVATOR. MIDLINE READY TO USE AND CONFIRMED BY DHIRAJ KIM.
[2021-09-09] VITALS (29 sets, daily range): BP systolic 90–129
[2021-09-09] MEDS: D5NS 1,000 ML IV SCH ×3 (00:38→16:45)
[2021-09-09] MEDS: PIPERACILLIN/TAZO 3.375 GM in NS 50 ML IV SCH ×4 (04:00→21:48)
[2021-09-09] MEDS: LINEZOLID 300 ML IV SCH ×2 (06:22→18:47)
[2021-09-09 07:17] LABS: BASOPHILS # (AUTO) 0.1 K/uL (0.0-0.2); BASOPHILS % (AUTO) 0.3 % (0.0-2.0); EOSINOPHILS # (AUTO) 1.2 K/uL (0.0-0.4); EOSINOPHILS % (AUTO) 5.1 % (0.0-4.0); HEMATOCRIT 37.7 % (36-54); LYMPHOCYTES # (AUTO) 1.4 K/uL (1.0-5.5); LYMPHOCYTES % (AUTO) 6.2 % (20.5-51.5); MEAN CORPUSCULAR HEMOGLOBIN 32 pg (27-31); MEAN CORPUSCULAR HGB CONC 35 % (32-36); MEAN CORPUSCULAR VOLUME 93 fL (79.0-98.0); MONOCYTES % (AUTO) 4.4 % (1.7-9.3); NEUTROPHILS # (AUTO) 19.3 K/uL (1.8-7.7); PLATELET COUNT (AUTO) 279 K/uL (130-430); RED BLOOD CELL COUNT(AUTO) 4.06 MIL/uL (4.2-6.2); RED CELL DISTRIBUTION WIDTH 13.6 % (9.0-15.0)
[2021-09-09 07:18] LABS: CREATININE 1.18 mg/dL (0.55-1.30)
--- NOTE | 2021-09-09 07:30 | NUR ---
RECEIVED PT FROM JUDY JULES. ASSUMED ALL CARE.
[2021-09-09 08:21] LABS: POTASSIUM 2.9 mmol/L (3.5-5.1)
--- NOTE | 2021-09-09 08:26 | NUR ---
DR. BARTONIUM PAGED TO REPORT K+= 2.9 AWAITING CALL BACK.
[2021-09-09] MEDS ORDERED: KCL 40 mEq in 100 mL (PREMIX) 100 ML IV ONE (08:45)
[2021-09-09] MEDS ORDERED: POTASSIUM CHLORIDE 20 MEQ/PKT PACKET PO ONE (08:45)
--- NOTE | 2021-09-09 08:46 | NUR ---
REPORTED TO DR. BARLOW PT'S K+= 2.7 , RECEIVED ORDER FOR KCL 40MEQ IVPB X1 NOW, 40MEQ KLOR CON GTUBE X1 NOW, BMP AT 1700 TODAY. ORDERS CARRIED OUT.
--- NOTE | 2021-09-09 09:00 | NUR ---
MAP 88, LEVOPHED TITRATED TURNED OFF. WILL CONTINUE TO MONITOR AND TITRATE NEEDED.
[2021-09-09] MEDS: HEPARIN SODIUM,PORCINE 5,000 UNITS/ML VIAL SUBCUT SCH ×2 (09:15→21:11)
[2021-09-09] MEDS: DOCUSATE SODIUM 100 MG/10 ML UDC GT SCH ×2 (09:16→21:06)
[2021-09-09] MEDS: LevETIRAcetam 500 MG/5 ML UDC ORAL LIQUID GT SCH ×2 (09:16→21:20)
[2021-09-09] MEDS: SENNA 8.8 MG/5 ML UDC GT SCH ×2 (09:17→21:00)
[2021-09-09] MEDS: MULTIVITS,CA,MINERALS/IRON/FA 1 TABLET GT SCH (09:17)
[2021-09-09] MEDS: GABAPENTIN 100 MG CAPSULE GT SCH ×3 (09:17→21:05)
[2021-09-09] MEDS: ASCORBIC ACID 500 MG TABLET GT SCH (09:17)
[2021-09-09] MEDS: BACLOFEN 10 MG TABLET GT SCH ×3 (09:17→21:05)
[2021-09-09] MEDS: TOPIRAMATE 100 MG TABLET(Topamax) GT SCH ×2 (09:19→21:05)
--- NOTE | 2021-09-09 10:15 | NUR ---
SCHEDULED MEDS GIVEN AND TOLERATED WELL. NO RESIDUAL NOTED IN GTUBE. FLUSHED WITH 30ML WATER BEFORE AND AFTER MED ADMINISTRATION. CONTACT AND ASPIRATION PRECAUTIONS MAINTAINED.
[2021-09-09] MEDS: ACETAMINOPHEN 650 MG/20.3 ML UDC GT PRN ×4 (11:08→17:00)
--- NOTE | 2021-09-09 11:50 | NUR ---
TEMP 100.4.F, TYLENOL 650 GIVEN VIA GTUBE, COOLING MEASURES IN PLACE.
[2021-09-09] MEDS: MICAFUNGIN SODIUM 100 MG in NS 100 ML IV SCH (12:00)
--- NOTE | 2021-09-09 13:42 | NUR ---
Dietitian Recommendations Jevity 1.2 @60 mL/hr, free water flush 200 mL Q6h, THREAT STREAMource BID. Provides (w/ D5%): 2001 kcals/day, 110 g protein/day and 1963 mL free water/day. Meets: 99% of lower kcal needs, 110% of lower protein needs and 98% of lower fluid needs. Please refer to nutrition assessment for details. Signed: 09/09/21 at 1343 by Ashley DOW <Co-Signature Required> Co-Signed: 09/09/21 at [address] Addendum: 09/09/21 at 1343 by Ashley DOW Amended: Links added.
--- NOTE | 2021-09-09 15:00 | NUR ---
REPORTED TO DR. SMITH THAT PT HAS CONTINUAL LOOSE STOOLS WITH OPEN WOUND AND BRIGHT RED RASH TO SACRAL COCCYX SITE. RECEIVED ORDER FOR FLEXISEAL. PT HAD WOUND CARE AND PICTURES TAKEN OF SUPRAPUBIC CATH, GTUBE SITE AND SACRUUM. PT HAD CONTINUAL LOOSE STOOLS AND HAS BEEN CHANGED X2 WITH PERINEAL CARE AND PARTIAL BED BATH GIVEN. PT HAS BEEN MOVED TO ROOM 6. CONTACT AND ASPIRATION PRECAUTIONS MAINTAINED. FEXISEAL PLACED WITH 45ML WATER ADDED TO BALLON, FLUSHED WITH 30ML WATER.
--- NOTE | 2021-09-09 15:45 | NUR ---
RT NOTES Transferred pt from 127 to ICU 6, bagged with 100% O2 via resus. bag to trach tube. A/w remains secure and patent. Pt back on vent with same settings. Vent to red outlet. Resus. bag and spare trach remains at bedside.
--- NOTE | 2021-09-09 17:48 | NUR ---
B/P 88/49 LEVOPHED INITIATED AT 0.03MC/KG/MIN. WILL CONTINUE TO MONITOR AND TITRATE NEEDED.
[2021-09-09 18:48] LABS: CALCIUM 7.3 mg/dL (8.4-11.0); CREATININE 1.08 mg/dL (0.55-1.30); POTASSIUM 3.9 mmol/L (3.5-5.1)
--- NOTE | 2021-09-09 19:24 | NUR ---
ENDORSED ALL CARE TO JUDY DAVISON. ALL QUESTIONS AND CONCERNS ADDRESSED.
[2021-09-09] MEDS ORDERED: LevETIRAcetam 500 MG/5 ML UDC ORAL LIQUID ONE (21:18)
[2021-09-10] VITALS (41 sets, daily range): BP systolic 71–145
[2021-09-10] MEDS: D5NS 1,000 ML IV SCH ×4 (00:59→20:10)
--- NOTE | 2021-09-10 03:02 | NUR ---
received report from Chiqui KIM. PT RECEIVED IN STATED CONDITION. PT HAS MOUTH OPENED WIDE WITH ALOT OF SECRETION IN THE MOUTH , SUCTIONED. PT HAS A FLEXISEAL IN PLACE SO SENNA was not given at 2100 . sputum speicmen was collected by the claim rep and taken to the lab.
--- NOTE | 2021-09-10 03:33 | NUR ---
Pt report received. Pt obtunded, responds to noxious stimuli only. Vent settings: A/C, 12, 550, 30%, 5. G-tube patent, secure with Jevity 1.2 at 50 mL/hr. RENATA midline with D5NS at 150 mL/hr and Levophed at 0.03 mcg/kg/min. Suprapubic cath secure draining alber urine with sedimentation noted to bag. VSS, NAD.
[2021-09-10] MEDS: PIPERACILLIN/TAZO 3.375 GM in NS 50 ML IV SCH ×4 (05:43→21:43)
[2021-09-10 07:06] LABS: CREATININE 0.85 mg/dL (0.55-1.30); POTASSIUM 3.5 mmol/L (3.5-5.1)
[2021-09-10 07:12] LABS: BASOPHILS # (AUTO) 0.2 K/uL (0.0-0.2); BASOPHILS % (AUTO) 0.9 % (0.0-2.0); EOSINOPHILS # (AUTO) 0.5 K/uL (0.0-0.4); EOSINOPHILS % (AUTO) 2.5 % (0.0-4.0); HEMATOCRIT 37.4 % (36-54); LYMPHOCYTES # (AUTO) 2.4 K/uL (1.0-5.5); LYMPHOCYTES % (AUTO) 11.6 % (20.5-51.5); MEAN CORPUSCULAR HEMOGLOBIN 32 pg (27-31); MEAN CORPUSCULAR HGB CONC 35 % (32-36); MEAN CORPUSCULAR VOLUME 94 fL (79.0-98.0); MONOCYTES # (AUTO) 1.2 K/uL (0.0-1.0); MONOCYTES % (AUTO) 5.7 % (1.7-9.3); NEUTROPHILS # (AUTO) 16.2 K/uL (1.8-7.7); PLATELET COUNT (AUTO) 240 K/uL (130-430); RED CELL DISTRIBUTION WIDTH 13.3 % (9.0-15.0); WHITE BLOOD COUNT (AUTO) 20.4 K/uL (4.8-10.8)
--- NOTE | 2021-09-10 07:30 | NUR ---
Pt report given to JUDY Don.
[2021-09-10 07:33] LABS: CALCIUM 7.5 mg/dL (8.4-11.0)
[2021-09-10] MEDS: LINEZOLID 300 ML IV SCH ×2 (08:01→17:35)
[2021-09-10 08:56] LABS: NEUTROPHILS % (AUTO) 79.3 % (40.0-70.0)
[2021-09-10] MEDS: DOCUSATE SODIUM 100 MG/10 ML UDC GT SCH ×2 (10:31→20:15)
[2021-09-10] MEDS: GABAPENTIN 100 MG CAPSULE GT SCH ×3 (10:31→20:16)
[2021-09-10] MEDS: HEPARIN SODIUM,PORCINE 5,000 UNITS/ML VIAL SUBCUT SCH ×2 (10:32→20:21)
[2021-09-10] MEDS: BACLOFEN 10 MG TABLET GT SCH ×3 (10:33→20:16)
[2021-09-10] MEDS: ASCORBIC ACID 500 MG TABLET GT SCH (10:34)
[2021-09-10] MEDS: MULTIVITS,CA,MINERALS/IRON/FA 1 TABLET GT SCH (10:34)
[2021-09-10] MEDS: TOPIRAMATE 100 MG TABLET(Topamax) GT SCH ×2 (10:34→20:16)
[2021-09-10] MEDS: LevETIRAcetam 500 MG/5 ML UDC ORAL LIQUID GT SCH ×2 (12:27→20:18)
[2021-09-10] MEDS: SENNA 8.8 MG/5 ML UDC GT SCH ×2 (12:27→20:19)
[2021-09-10] MEDS: MICAFUNGIN SODIUM 100 MG in NS 100 ML IV SCH (12:29)
--- NOTE | 2021-09-10 19:30 | NUR ---
OPENING NOTES: RECEIVED BEDSIDE REPORT FROM [facility] SHIFT NURSE, PATIENT IS A&OX0 OPENS EYES BUT DOES NOT FOLLOW, PATIENT IS CONTRACTED WITH SKIN ISSUES, DAY SHIFT PUT ON A NEW DRESSING, DID A PEEL AND PEAKED, PATENT HAS A LAC 20G AND L MIDLINE WITH D5 NS RUNNING AT 150 ML/HR. PATIENT IS TRACH WITH SETTING OF AC 12,550,30%,5, PEG WITH GEVITY 1.2 AT 50 ML/HR, HAS A MARSHALL PUBIC CATHETER DAY SHIFT GOT 850 ML. BED IS AT THE LOWEST LEVEL, BRAKES ARE LOCKED, APPROPRIATE SIDE RAILS UP, CALL LIGHT IS WITHIN REACH, SUCTION IS WORKING.
--- NOTE | 2021-09-10 19:30 | NUR ---
0800- RECEIVED PATIENT -SEE CRITICAL CARE ASSESSMENT, VENT TO TRACH, TUBE FEEDS, MULTIPLE ABX. OFF LEVO SINCE 0650AM. CONTRACTED. TURN EVERY 2 HRS AND PRN. 1200- ORAL CARE , SKIN CARE COMPLETED EVERY 2 HRS AND PRN. 1800- MULTIPLE ANTIBIOTICS, REPOSITIONED PER SKIN CARE PROTOCOLS, 1930- DR PHELPS IN TO SEE PATIENT AND UPDATED, ORDER FOR WOUND CARE CONSULT AND DIETARY FOR SKIN ISSUES.
[2021-09-11] VITALS (33 sets, daily range): BP systolic 97–161
[2021-09-11] MEDS: D5NS 1,000 ML IV SCH ×4 (01:28→22:05)
[2021-09-11] MEDS: PIPERACILLIN/TAZO 3.375 GM in NS 50 ML IV SCH ×3 (04:54→15:39)
[2021-09-11] MEDS: LINEZOLID 300 ML IV SCH (06:04)
[2021-09-11 06:34] LABS: BASOPHILS # (AUTO) 0.1 K/uL (0.0-0.2); BASOPHILS % (AUTO) 0.5 % (0.0-2.0); EOSINOPHILS # (AUTO) 0.3 K/uL (0.0-0.4); EOSINOPHILS % (AUTO) 2.7 % (0.0-4.0); HEMATOCRIT 35.8 % (36-54); MEAN CORPUSCULAR HEMOGLOBIN 31 pg (27-31); MEAN CORPUSCULAR HGB CONC 33 % (32-36); MEAN CORPUSCULAR VOLUME 93 fL (79.0-98.0); MONOCYTES # (AUTO) 0.8 K/uL (0.0-1.0); MONOCYTES % (AUTO) 6.2 % (1.7-9.3); NEUTROPHILS # (AUTO) 9.1 K/uL (1.8-7.7); NEUTROPHILS % (AUTO) 74.6 % (40.0-70.0); PLATELET COUNT (AUTO) 136 K/uL (130-430); RED BLOOD CELL COUNT(AUTO) 3.86 MIL/uL (4.2-6.2); WHITE BLOOD COUNT (AUTO) 12.2 K/uL (4.8-10.8)
[2021-09-11 06:46] LABS: ALBUMIN 1.6 g/dL (3.4-4.8); CREATININE 0.77 mg/dL (0.55-1.30); POTASSIUM 3.2 mmol/L (3.5-5.1); TOTAL BILIRUBIN 0.3 mg/dL (0.0-1.0)
--- NOTE | 2021-09-11 07:20 | NUR ---
OPENING NOTE: REPORT RC'VD FROM OUTGOING NOC RN, ALL CARES ASSUMED. (JUDY LYLES)
[2021-09-11] MEDS ORDERED: KCL 40 mEq in 100 mL (PREMIX) 100 ML IV ONE ×2 (08:15→11:01)
--- NOTE | 2021-09-11 08:30 | NUR ---
MAKING ROUNDS, POTASSIUM RESULTS GIVEN, NEW ORDERS OBTAINED IN PERSON FROM MD AT BEDSIDE.
[2021-09-11] MEDS ORDERED: POTASSIUM CHLORIDE 20 MEQ/PKT PACKET PO ONE (08:45)
[2021-09-11] MEDS ORDERED: POTASSIUM CHLORIDE 40 MEQ in NS 250 ML IV ONE (09:30)
[2021-09-11] MEDS: TOPIRAMATE 100 MG TABLET(Topamax) GT SCH ×2 (09:48→21:18)
[2021-09-11] MEDS: ASCORBIC ACID 500 MG TABLET GT SCH (09:48)
[2021-09-11] MEDS: MULTIVITS,CA,MINERALS/IRON/FA 1 TABLET GT SCH (09:48)
[2021-09-11] MEDS: GABAPENTIN 100 MG CAPSULE GT SCH ×3 (09:48→21:18)
[2021-09-11] MEDS: SENNA 8.8 MG/5 ML UDC GT SCH ×2 (09:48→21:18)
[2021-09-11] MEDS: BACLOFEN 10 MG TABLET GT SCH ×4 (09:48→21:17)
[2021-09-11] MEDS: DOCUSATE SODIUM 100 MG/10 ML UDC GT SCH ×2 (09:48→21:17)
[2021-09-11] MEDS: HEPARIN SODIUM,PORCINE 5,000 UNITS/ML VIAL SUBCUT SCH ×2 (09:50→21:27)
--- NOTE | 2021-09-11 10:30 | NUR ---
RN ROUNDS: PATIENT REPOSITIONED USING PILLOW SUPPORT, BED LOW AND LOCKED FOR SAFETY.
[2021-09-11] MEDS ORDERED: POTASSIUM CHLORIDE 20 MEQ/PKT PACKET ONE (11:00)
[2021-09-11] MEDS: LevETIRAcetam 500 MG/5 ML UDC ORAL LIQUID GT SCH ×2 (11:01→21:18)
[2021-09-11] MEDS: MICAFUNGIN SODIUM 100 MG in NS 100 ML IV SCH (11:02)
--- NOTE | 2021-09-11 12:00 | NUR ---
SUPRAPUBIC CATHETER CARE COMPLETED WITH USE OF CHG WIPES, PATIENT TOLERATED WELL.
--- NOTE | 2021-09-11 14:44 | NUR ---
DR. BARLOW MAKING ROUNDS, VERBAL BEDSIDE REPORT GIVEN.
--- NOTE | 2021-09-11 16:30 | NUR ---
PAGED DR. SMITH FOR LAB BLOOD CULTURE RESULTS
--- NOTE | 2021-09-11 16:37 | NUR ---
SPOKE WITH DR. SMITH, NEW ORDERS OBTAINED FOR LAB RESULTS, ORDERS TRANSCRIBED.
--- NOTE | 2021-09-11 18:30 | NUR ---
Wound Consult: Late note for 09/11/2021 at 1830 secondary to patient care. Wound consult request per Dr. Moe, Thank you, Dr. Moe, for the consult. Patient received in a Sara S3 bed with an IsoFlex PARDEEP mattress, eyes open, non-verbal, non-responsive. Skin is poor. Luis A score is an 11. Past medical history: Cerebral Palsy, Chronic Respiratory Failure, Chronic Encephalopathy, Seizure disorder, Tracheostomy, G-tube placement. Current labs: WBC 12.2, RBC 3.86, hemoglobin 12.0, hematocrit 35.8, potassium 3.2, chloride 116, glucose 105, calcium 7.0, albumin 1.6. Microbiology: MRSA screen results x2 negative. Urine culture results negative. Blood culture results positive for Proteus Mirabilis (ESBL). Tracheal aspirate culture results not performed secondary to saliva contamination, sputum expectorated culture results positive for Pseudomonas aeruginosa. Intrinsic factors that delay wound healing: Cerebral Palsy, Chronic Respiratory Failure, Chronic Encephalopathy, severe Hypoalbuminemia. Extrinsic factors that delay wound healing: Immobility. MRSA screen results negative. Blood culture results x 2 and Urine Culture results in progress. Endotrach culture results in progress. Patient presents with: 1. Sacral-Coccygeal Area: Appears to be severely macerated tissue over scar tissue from a healed wound with tissue overgrowth, which has converted to an Unstageable Pressure Ulcer (vs an sDTI), present on admission. Site has large area of open red tissue with dark discolored tissue underneath. No odor, scant sanguineous drainage. Pam-wound intact. Site measures 11.5 cm x 10.5 cm. Recommend: Cleanse site with normal saline. Apply Calmoseptine cream to site. Apply alginate dressings to any portion of site not covered by Calmoseptine cream. Cover with nonadhesive foam dressings, then secure with transparent dressings. Perform site care daily, and as needed for dressing soiling or dislodgment. 2. Right Lower Buttock near Ischium: Appears to be severely macerated tissue over scar tissue from a healed wound with tissue overgrowth, which has converted to an Unstageable Pressure Ulcer (vs an sDTI), present on admission. Site has large area of open red tissue with dark discolored tissue underneath. No odor, scant sanguineous drainage. Pam-wound intact. Site measures 8.0 cm x 9.0 cm. Recommend: Cleanse site with normal saline. Apply Calmoseptine cream to site. Apply alginate dressings to any portion of site not covered by Calmoseptine cream. Cover with nonadhesive foam dressings, then secure with transparent dressings. Perform site care daily, and as needed for dressing soiling or dislodgment. 3. Bilateral Heels: Appears to be blanchable redness, present on admission. Recommend: No dressings needed. Elevate, offload and float bilateral heels with one pillow lengthwise under each extremity at all times. Also recommend: Reposition patient side to side only every two hours with pillow support. Elevate, offload and float heels with pillows. Offload pressure areas with pillows for pressure re-distribution. Perform skin care and monitor skin integrity q shift. Use Calmoseptine cream on moisture susceptible areas qid and as needed for dressing soiling or dislodgement. Place patient on a P500 low air-loss mattress.
--- NOTE | 2021-09-11 18:40 | NUR ---
WOUND CARE COMPLETED PER WOUND CARE NURSE INSTRUCTIONS
--- NOTE | 2021-09-11 19:05 | NUR ---
CLOSING NOTE: REPORT GIVEN AT BEDSIDE TO INCOMING NOC RN, ALL CARES ENDORSED.
--- NOTE | 2021-09-11 19:15 | NUR ---
change of shift.pt.presents isolation status;contact;esbl.b/cx+.pt.presents trach:#*.intact/vent;vent settings:tv:550,fio2%=30%,a/c:12,peep:5.pt.presents mid-line;location lt.bicept;intact iv fluids infusing.pt.present g-tube intact;g-tube fee d:jevity;1.2 rate:60ml/hr. pt.presents escobar cath/rectal tube intact;patent.call light w/in access of the pt.
--- NOTE | 2021-09-11 20:00 | NUR ---
pt.assessed.v/s assessed values wnl.trach intact.i have attended to the oral/trach care/suction.02-sat%=99%.mid-line intact iv fluids infusing.g-tube intact g-tube feed infusing.escobar cath/rectal tube intact;patent.per flacc pain mgx pt.absent facial grimaces/body posturing.pt.assessed for cleanliness.pt.repositioned.call light placed w/in access of the pt.
--- NOTE | 2021-09-11 21:00 | NUR ---
2100p medications administered.administered via the g-tube.g-tube feed residuals assessed.note 10ml.g-tube flushed w/out resistance.per flacc pain mgx pt.absent facial grimaces/body posturing.call light w/in access of the pt.
[2021-09-11] MEDS: MEROPENEM 1 GM in NS 100 ML IV SCH (21:19)
--- NOTE | 2021-09-11 22:00 | NUR ---
pt.assessed.v/s assessed values wnl.trach intact.i have attended to the oral/trach care/suction.o2-sat%99%.mid line intact iv fluids infusing. escobar cath/rectal tube intact;patent.per flacc pain mgx pt.absent facial grimaces/body posturing.pt.assessed for cleanliness. pt.repositioned.call light placed w/in access of the pt.
[2021-09-12] VITALS (28 sets, daily range): BP systolic 110–165
--- NOTE | 2021-09-12 | NUR ---
pt.assessed.v/s assessed values wnl.trach intact.i have attended to the oral trach care/suction.o2-sat%=98%mid-line intact iv fluids infusing.g-tube intact g-tube feed infusing.i have administered the g-tube flush.escobar cath/rectal tube intact;patent. per flacc pain mgx pt.absent facial grimaces/body posturing.pt.assessed for cleanliness.pt.repositioned call light placed w/in access of the pt.
--- NOTE | 2021-09-12 02:00 | NUR ---
pt.assessed.v/s assessed values wnl.trach intact.i have attended to the oral/trach care/suction.02-sat%=98%.mid- line intact iv fluids infusing.g-tube intact g-tube feed infusing.escobar cath/rectal tube intact;patent.per flacc pain mgx pt. absent facial grimaces/body posturing.pt.assessed for cleanliness.pt.repositioned.call light placed w/in access of the pt.
[2021-09-12] MEDS: D5NS 1,000 ML IV SCH ×3 (03:31→18:27)
--- NOTE | 2021-09-12 04:00 | NUR ---
pt.assessed.v/s assessed values wnl.trach intact i have attended to the oral/trach care/suction.o2-sat%=98%.mid-line intact iv fluids infusing.g-tube intact g-tube feed infusing.supra-pubic cath/rectal tube intact;patent.per flacc pain mgx pt.absent facial grimaces/body posturing.pt.assessed for cleanliness.pt.repositioned.call light placed w/in access of the pt.
[2021-09-12] MEDS: MEROPENEM 1 GM in NS 100 ML IV SCH ×3 (05:19→21:01)
--- NOTE | 2021-09-12 06:26 | NUR ---
pt.assessed.v/s assessed values wnl.trach intact i have attended to the oral/trach care/suction.o2-sat%=98%.mid-line intact iv fluids infusing.merrem abx ivpb 0600a dose administered.g-tube intact g-tube feed infusing.supra-pubic cath/rectal tube intact;patent. per flacc pain mgx pt.absent facial grimaces/body posturing.pt.assessed for cleanliness pt.repositioned.call light placed w/in access of the pt. Addendum: 09/12/21 at 0636 by Kaiden Patel RN i have attended to the wound care dsg changes.i have placed dsg g-tube,supra-pubic cath insertion site.
[2021-09-12 06:51] LABS: BASOPHILS # (AUTO) 0.1 K/uL (0.0-0.2); BASOPHILS % (AUTO) 0.8 % (0.0-2.0); EOSINOPHILS # (AUTO) 0.4 K/uL (0.0-0.4); EOSINOPHILS % (AUTO) 2.6 % (0.0-4.0); HEMATOCRIT 40.9 % (36-54); HEMOGLOBIN 13.5 g/dL (14.0-18.0); LYMPHOCYTES # (AUTO) 2.9 K/uL (1.0-5.5); LYMPHOCYTES % (AUTO) 19.9 % (20.5-51.5); MEAN CORPUSCULAR HEMOGLOBIN 31 pg (27-31); MEAN CORPUSCULAR HGB CONC 33 % (32-36); MEAN CORPUSCULAR VOLUME 93 fL (79.0-98.0); MONOCYTES % (AUTO) 7.2 % (1.7-9.3); NEUTROPHILS % (AUTO) 69.5 % (40.0-70.0); PLATELET COUNT (AUTO) 184 K/uL (130-430); RED CELL DISTRIBUTION WIDTH 12.8 % (9.0-15.0); WHITE BLOOD COUNT (AUTO) 14.4 K/uL (4.8-10.8)
--- NOTE | 2021-09-12 07:25 | NUR ---
Opening Received report on pt. Pt awake, nonverbal, trach to vent, in no signs of pain or distress. Pt's mouth wide open with secretions, suctioned large amount of secretions and perform oral care. Pt with bilateral extremities contracted. Receiving tube feeding via GT. Suprapubic catheter in place draining urine to gravity. Flexiseal in place with loose brown stool.
[2021-09-12 08:11] LABS: CALCIUM 7.5 mg/dL (8.4-11.0); CREATININE 0.77 mg/dL (0.55-1.30); TOTAL BILIRUBIN 0.3 mg/dL (0.0-1.0)
[2021-09-12] MEDS: DOCUSATE SODIUM 100 MG/10 ML UDC GT SCH ×2 (08:56→20:33)
[2021-09-12] MEDS: HEPARIN SODIUM,PORCINE 5,000 UNITS/ML VIAL SUBCUT SCH ×2 (08:57→20:33)
[2021-09-12] MEDS: GABAPENTIN 100 MG CAPSULE GT SCH ×3 (08:57→20:33)
[2021-09-12] MEDS: BACLOFEN 10 MG TABLET GT SCH ×3 (08:58→20:33)
[2021-09-12] MEDS: TOPIRAMATE 100 MG TABLET(Topamax) GT SCH ×2 (08:58→20:33)
[2021-09-12] MEDS: ASCORBIC ACID 500 MG TABLET GT SCH (08:58)
[2021-09-12] MEDS: MULTIVITS,CA,MINERALS/IRON/FA 1 TABLET GT SCH (08:58)
[2021-09-12] MEDS: SENNA 8.8 MG/5 ML UDC GT SCH ×2 (08:59→20:33)
[2021-09-12] MEDS: LevETIRAcetam 500 MG/5 ML UDC ORAL LIQUID GT SCH ×2 (08:59→20:33)
--- NOTE | 2021-09-12 10:19 | NUR ---
PT OFF TELE, RN AWARE.
[2021-09-12] MEDS: MICAFUNGIN SODIUM 100 MG in NS 100 ML IV SCH (11:07)
--- NOTE | 2021-09-12 11:30 | NUR ---
CHG bath given, linen change done. Frequently suctioning pt mouth secretions.
--- NOTE | 2021-09-12 15:14 | NUR ---
Nutrition F/U Admitting Diagnosis Sepsis Reviewed Pertinent Medical/Surgical Hx Medical Record Patient Primary RN Medical History Comment: Per EMR review, PMH includes cerebral palsy, encephalopathy, respiratory failure, and seizures. Pt also found w/ UTI and SUZI. SARS-CoV-2 Ag (Rapid) Negative 09/07. Subjective Information: RD rounded to ICU earlier today. Pt's primary was tending to another pt during RD rounds to unit. RD visited pt at bedside. Pt was obtunded; TF was hung (Jevity 1.2), but not infusing. RD later called ICU and spoke w/ RN. She reported that pt's TF has since been resumed and that pt has been tolerating OK -- no GRV, and Prosource has been administered; however, pt has a flexiseal w/ output of about 300 per car shifter and possibly another 300 ml since start of her shift. Pt may benefit from Banatrol BID to help bulk stool. Per EMR review, Jevity 1.2 TF noted 09/12; GT present; TF Rate: 60 ml/hr 09/12; GRV: 70 ml 09/12; TF Intakes: 580 ml 09/12; abd is soft w/ active bowel sounds; LBM x1 09/08; Luis A scale: 8 w/ wounds noted to sacrum and L/R buttocks (confirmed w/ RN). Current TF prescription remains adequate/appropriate for now. Current Diet Order/Nutrition Support: Jevity 1.2 at 60 mm/hr, Prosource BID, Free Water Flush: 200 ml Q6h via GT x2 days free Patient/Significant Other Unable To Verbalize Education Provided Not Indicated Pertinent Medications: theragran, VIT C, dulcolax, D5%NS at 150 ml/hr (612 kcal/day), senna, keppra, heparin Pertinent Labs: K 4 WNL, WBC 14.4 H, eGFR 1222 WNL, Ca 7.5 L Height (Feet) 5 feet Height (Inches) 5.00 inches Weight (Pounds) 180 pounds -- stable since 09/09 Patient Weight 81.647 kg Body Mass Index 29.95 kg/m2 %IBW 132 [place]/Adjusted Body Weight 136#/61.8 kg; AdjBW: 147#/66.8 kg Recent Weight Change unable to verify Weight Status Obese Last BM September 08, 2021 Food Allergies unable to verify Usual Diet At Home Jevity 1.2 @50 mL/hr per nursing assessment Skin Integrity Comment: Luis A score 11, skin tear/possible DTI on buttocks. Estimated Energy Expenditure (kcals/day) 7376-8880 (30-35 kcals/kg AdjBW d/t obesity, sepsis, chronic vent) Estimated Protein Required (g/day) 100-134 (1.5-2 g/kg AdjBW d/t obesity, sepsis, chronic vent) Estimated Fluid Required (l/day) 2-2.3 (1 mL/kcal for maintenance) Problem/Etiology/Signs/Symptoms Increased nutritional needs R/T physiological demands AEB estimated nutritional requirements for sepsis. *Ongoing Complicated GI function R/T increased gut motility/possible malabsorption AEB loose stools. *New Expected Outcomes/Goals Monitor EN tolerance and intakes w/ goal of pt meeting more than 90% of estimated nutritional needs, labs trending WNL, normal GI function, skin integrity/wt maintenance. Dietitian Recommendations * Jevity 1.2 at 60 ml/hr, Prosource BID, Banatrol BID, Free Water Flush: 200 ml Q6h via GT Provides (w/ D5%NS IV): 2460 kcal/day, 110 g protein/day and 1963 ml free water/day Meets: 105% of upper end of estimated caloric needs, 82% of upper end of estimated protein needs, and 98% of lower end of estimated fluid needs * May consider modifying TF formula (Vital AF 1.2) if loose stools worsen/persist * Consider D/C laxatives Follow Up High Risk: F/U in 2-3 days
--- NOTE | 2021-09-12 15:21 | NUR ---
Dietitian Recommendations * Jevity 1.2 at 60 ml/hr, Prosource BID, Banatrol BID, Free Water Flush: 200 ml Q6h via GT Provides (w/ D5%NS IV): 2460 kcal/day, 110 g protein/day and 1963 ml free water/day Meets: 105% of upper end of estimated caloric needs, 82% of upper end of estimated protein needs, and 98% of lower end of estimated fluid needs * May consider modifying TF formula (Vital AF 1.2) if loose stools worsen/persist * Consider D/C laxatives LP, RD Please refer to Nutrition F/U for details.
--- NOTE | 2021-09-12 18:00 | NUR ---
Pt transferred to [facility] bed. Tolerated well.
--- NOTE | 2021-09-12 18:55 | NUR ---
Closing Pt in no signs of pain or distress, remains on AC mode on ventilator. Receiving GT feeding, tolerated well. IVF to midline. Flexiseal with loose brown drainage.
[2021-09-12] MEDS: ACETAMINOPHEN 650 MG/20.3 ML UDC GT PRN (21:18)
--- NOTE | 2021-09-12 21:41 | NUR ---
Endorsed plan of care to Kelly KIM
[2021-09-13] VITALS (35 sets, daily range): BP systolic 117–152
[2021-09-13] MEDS: D5NS 1,000 ML IV SCH ×4 (02:17→21:43)
[2021-09-13 06:44] LABS: BASOPHILS # (AUTO) 0.1 K/uL (0.0-0.2); BASOPHILS % (AUTO) 0.5 % (0.0-2.0); EOSINOPHILS # (AUTO) 0.4 K/uL (0.0-0.4); EOSINOPHILS % (AUTO) 1.9 % (0.0-4.0); HEMATOCRIT 44.5 % (36-54); LYMPHOCYTES # (AUTO) 3.2 K/uL (1.0-5.5); MEAN CORPUSCULAR HEMOGLOBIN 31 pg (27-31); MEAN CORPUSCULAR HGB CONC 34 % (32-36); MEAN CORPUSCULAR VOLUME 92 fL (79.0-98.0); MONOCYTES # (AUTO) 1.2 K/uL (0.0-1.0); MONOCYTES % (AUTO) 6.3 % (1.7-9.3); NEUTROPHILS # (AUTO) 14.1 K/uL (1.8-7.7); NEUTROPHILS % (AUTO) 74.3 % (40.0-70.0); PLATELET COUNT (AUTO) 266 K/uL (130-430); RED BLOOD CELL COUNT(AUTO) 4.84 MIL/uL (4.2-6.2); RED CELL DISTRIBUTION WIDTH 12.8 % (9.0-15.0); WHITE BLOOD COUNT (AUTO) 18.9 K/uL (4.8-10.8)
[2021-09-13 07:30] LABS: ALBUMIN 2.3 g/dL (3.4-4.8); CALCIUM 7.9 mg/dL (8.4-11.0); CREATININE 0.69 mg/dL (0.55-1.30); POTASSIUM 3.4 mmol/L (3.5-5.1); TOTAL BILIRUBIN 0.2 mg/dL (0.0-1.0)
[2021-09-13] MEDS: HEPARIN SODIUM,PORCINE 5,000 UNITS/ML VIAL SUBCUT SCH ×2 (09:00→21:54)
[2021-09-13] MEDS: SENNA 8.8 MG/5 ML UDC GT SCH ×2 (09:00→21:00)
[2021-09-13] MEDS: DOCUSATE SODIUM 100 MG/10 ML UDC GT SCH ×2 (09:00→21:00)
[2021-09-13] MEDS: BACLOFEN 10 MG TABLET GT SCH ×3 (09:25→21:44)
[2021-09-13] MEDS: MULTIVITS,CA,MINERALS/IRON/FA 1 TABLET GT SCH (09:25)
[2021-09-13] MEDS: GABAPENTIN 100 MG CAPSULE GT SCH ×3 (09:25→21:43)
[2021-09-13] MEDS: ASCORBIC ACID 500 MG TABLET GT SCH (09:25)
[2021-09-13] MEDS: TOPIRAMATE 100 MG TABLET(Topamax) GT SCH ×2 (09:25→21:44)
[2021-09-13] MEDS: LevETIRAcetam 500 MG/5 ML UDC ORAL LIQUID GT SCH ×2 (09:26→21:44)
[2021-09-13] MEDS: MEROPENEM 1 GM in NS 100 ML IV SCH ×3 (09:31→22:25)
[2021-09-13] MEDS: MICAFUNGIN SODIUM 100 MG in NS 100 ML IV SCH (12:45)
[2021-09-14] VITALS (37 sets, daily range): BP systolic 120–162
[2021-09-14] MEDS: D5NS 1,000 ML IV SCH ×4 (03:52→19:53)
[2021-09-14 06:08] LABS: BASOPHILS # (AUTO) 0.1 K/uL (0.0-0.2); BASOPHILS % (AUTO) 0.6 % (0.0-2.0); EOSINOPHILS # (AUTO) 0.5 K/uL (0.0-0.4); EOSINOPHILS % (AUTO) 2.7 % (0.0-4.0); HEMATOCRIT 39.1 % (36-54); LYMPHOCYTES # (AUTO) 4.2 K/uL (1.0-5.5); LYMPHOCYTES % (AUTO) 23.8 % (20.5-51.5); MEAN CORPUSCULAR HEMOGLOBIN 31 pg (27-31); MEAN CORPUSCULAR HGB CONC 33 % (32-36); MEAN CORPUSCULAR VOLUME 92 fL (79.0-98.0); MONOCYTES # (AUTO) 1.2 K/uL (0.0-1.0); MONOCYTES % (AUTO) 7.1 % (1.7-9.3); NEUTROPHILS # (AUTO) 11.5 K/uL (1.8-7.7); NEUTROPHILS % (AUTO) 65.8 % (40.0-70.0); PLATELET COUNT (AUTO) 269 K/uL (130-430); RED BLOOD CELL COUNT(AUTO) 4.24 MIL/uL (4.2-6.2); RED CELL DISTRIBUTION WIDTH 12.9 % (9.0-15.0); WHITE BLOOD COUNT (AUTO) 17.5 K/uL (4.8-10.8)
[2021-09-14] MEDS: MEROPENEM 1 GM in NS 100 ML IV SCH (06:55)
[2021-09-14 07:00] LABS: CALCIUM 7.4 mg/dL (8.4-11.0); CREATININE 0.61 mg/dL (0.55-1.30); POTASSIUM 3.3 mmol/L (3.5-5.1)
--- NOTE | 2021-09-14 07:45 | NUR ---
UZIEL LEIVA RN /HE IS MY PATIENT TODAY/MW
[2021-09-14] MEDS: BACLOFEN 10 MG TABLET GT SCH ×3 (09:07→20:43)
[2021-09-14] MEDS: LevETIRAcetam 500 MG/5 ML UDC ORAL LIQUID GT SCH ×2 (09:08→20:44)
[2021-09-14] MEDS: DOCUSATE SODIUM 100 MG/10 ML UDC GT SCH ×2 (09:08→20:44)
[2021-09-14] MEDS: TOPIRAMATE 100 MG TABLET(Topamax) GT SCH ×2 (09:08→20:44)
[2021-09-14] MEDS: ASCORBIC ACID 500 MG TABLET GT SCH (09:08)
[2021-09-14] MEDS: MULTIVITS,CA,MINERALS/IRON/FA 1 TABLET GT SCH (09:08)
[2021-09-14] MEDS: SENNA 8.8 MG/5 ML UDC GT SCH ×2 (09:10→20:45)
[2021-09-14] MEDS: GABAPENTIN 100 MG CAPSULE GT SCH ×3 (09:10→20:44)
[2021-09-14] MEDS: HEPARIN SODIUM,PORCINE 5,000 UNITS/ML VIAL SUBCUT SCH ×2 (09:10→20:47)
[2021-09-14] MEDS: PIPERACILLIN/TAZO 4.5GM/DEX-IS 100 ML IV SCH ×2 (14:09→21:10)
[2021-09-14] MEDS ORDERED: MENTHOL/ZINC OXIDE 113 GM OINT. TP PRN (17:30)
[2021-09-14] MEDS ORDERED: BALSAM PERU/CASTOR OIL 56.7 GM OINT...G. TP SCH (17:30)
--- NOTE | 2021-09-14 19:05 | NUR ---
RECD REPORT FROM JUDY MORROW. CHG BATH DONE, WOUND CARE DONE, VENEFLEX APPLIED. DRESSING CHANGED ON SACROCOCCYX AND BOTH BUTTOCKS DONE FOAM DRESSING APPLIED. TURN AND REPOSITION TO COMFORT. VSS AFEBRILE. TOLERATING TUBE FEEDING.
[2021-09-15] VITALS (11 sets, daily range): BP systolic 116–154
--- NOTE | 2021-09-15 01:30 | NUR ---
Called [facility] for orders to transfer patient.
[2021-09-15] MEDS: D5NS 1,000 ML IV SCH ×2 (01:47→16:08)
--- NOTE | 2021-09-15 01:55 | NUR ---
[address] YEN REGALADO TO TRANSFER TO TELE AWAITING FOR BED FROM [facility]
--- NOTE | 2021-09-15 03:50 | NUR ---
RT NOTES ASSISTED WITH TRANSFER TO [facility]. BAGGED PT WITH 100% FIO2 VIA AMBU BAG. PLACED ON VENT WITH CURRENT SETTINGS. TRACH IS SECURE AND INTACT. NO RESP DISTRESS NOTED. Addendum: 09/15/21 at 0421 by Cristian Canada RT Amended: Links added.
--- NOTE | 2021-09-15 04:00 | NUR ---
Transferred patient to tele 117 [id number]
--- NOTE | 2021-09-15 04:12 | NUR ---
0400 TRANSFER TO [facility] VIA BED BAGGING BY RT RIKY BARCLAY REPORT TO MONICA KIM IN [facility] FOR CONTINUITY OF CARE.
--- NOTE | 2021-09-15 04:15 | NUR ---
PT TRANSFERRED FROM ICU. PT AOX0 UNABLE TO MAKE NEEDS KNOWN. PT IS CONTRACTED. PT IS TRACH TO VENT. CURRENTLY O2 SAT IS 99%. HOB ELEVATED. TUBE FEEDING CURRENTLY RUNNING. FLEXI SEAL IS DRAINING TO GRAVITY. SUPERPUBIC CATH DRAINING TO GRAVITY. HEEL PROTECTORS IN PLACE. ALL NEEDS MEET AT THIS TIME. WILL CONTINUE TO MONITOR.
[2021-09-15] MEDS: PIPERACILLIN/TAZO 4.5GM/DEX-IS 100 ML IV SCH ×3 (06:03→21:10)
[2021-09-15] MEDS: HEPARIN SODIUM,PORCINE 5,000 UNITS/ML VIAL SUBCUT SCH ×2 (09:00→21:13)
[2021-09-15] MEDS: SENNA 8.8 MG/5 ML UDC GT SCH ×2 (09:00→21:11)
[2021-09-15] MEDS: DOCUSATE SODIUM 100 MG/10 ML UDC GT SCH ×2 (09:00→21:11)
[2021-09-15 12:09] LABS: BASOPHILS # (AUTO) 0.1 K/uL (0.0-0.2); BASOPHILS % (AUTO) 0.6 % (0.0-2.0); EOSINOPHILS # (AUTO) 0.5 K/uL (0.0-0.4); EOSINOPHILS % (AUTO) 3.4 % (0.0-4.0); HEMATOCRIT 41.9 % (36-54); LYMPHOCYTES # (AUTO) 1.8 K/uL (1.0-5.5); LYMPHOCYTES % (AUTO) 12.7 % (20.5-51.5); MEAN CORPUSCULAR HEMOGLOBIN 31 pg (27-31); MEAN CORPUSCULAR HGB CONC 33 % (32-36); MEAN CORPUSCULAR VOLUME 92 fL (79.0-98.0); MONOCYTES % (AUTO) 6.8 % (1.7-9.3); NEUTROPHILS # (AUTO) 10.7 K/uL (1.8-7.7); NEUTROPHILS % (AUTO) 76.5 % (40.0-70.0); PLATELET COUNT (AUTO) 311 K/uL (130-430); RED BLOOD CELL COUNT(AUTO) 4.55 MIL/uL (4.2-6.2); RED CELL DISTRIBUTION WIDTH 12.6 % (9.0-15.0); WHITE BLOOD COUNT (AUTO) 13.9 K/uL (4.8-10.8)
[2021-09-15] MEDS: ASCORBIC ACID 500 MG TABLET GT SCH (12:12)
[2021-09-15] MEDS: GABAPENTIN 100 MG CAPSULE GT SCH ×3 (12:12→21:11)
[2021-09-15] MEDS: MULTIVITS,CA,MINERALS/IRON/FA 1 TABLET GT SCH (12:12)
[2021-09-15] MEDS: BACLOFEN 10 MG TABLET GT SCH ×3 (12:12→21:11)
[2021-09-15] MEDS: TOPIRAMATE 100 MG TABLET(Topamax) GT SCH ×2 (12:12→21:11)
--- NOTE | 2021-09-15 16:00 | NUR ---
pt remains stable, non verbal, vs stable, nsr, no distres noted, tube feeding infusing as ordered. Sponge bath, oral care, che care, and dressing change to wound in coccyx, sacrum, and ishium. Gtube site and supra pubic cath care completed. pt tolerated well.
[2021-09-15] MEDS: LevETIRAcetam 500 MG/5 ML UDC ORAL LIQUID GT SCH ×2 (16:07→21:11)
[2021-09-16] VITALS: BP_SYST 128
[2021-09-16] MEDS: D5NS 1,000 ML IV SCH ×3 (00:22→22:23)
[2021-09-16] MEDS: PIPERACILLIN/TAZO 4.5GM/DEX-IS 100 ML IV SCH ×3 (05:19→22:21)
--- NOTE | 2021-09-16 07:02 | NUR ---
PT WAS STABLE THROUGH OUT THE SHIFT. VENT SETTING DID NOT CHANGE. PT WAS SUCTIONED THROUGHOUT SHIFT. PT TURNED AND REPOSITIONED Q2H. PT TOLERATING TUBE FEEDING WITH RESIDUAL VOLUME AT 0. FLEXISEAL DRAINING WELL. DRESSING INTACT. SPC DRAINING TO GRAVITY. WILL ENDORSE CARE TO DAY RN.
[2021-09-16] MEDS: TOPIRAMATE 100 MG TABLET(Topamax) GT SCH ×2 (09:48→22:22)
[2021-09-16] MEDS: ASCORBIC ACID 500 MG TABLET GT SCH (09:48)
[2021-09-16] MEDS: MULTIVITS,CA,MINERALS/IRON/FA 1 TABLET GT SCH (09:49)
[2021-09-16] MEDS: SENNA 8.8 MG/5 ML UDC GT SCH ×2 (09:49→22:54)
[2021-09-16] MEDS: DOCUSATE SODIUM 100 MG/10 ML UDC GT SCH ×2 (09:49→22:22)
[2021-09-16] MEDS: GABAPENTIN 100 MG CAPSULE GT SCH ×3 (09:49→22:22)
[2021-09-16] MEDS: HEPARIN SODIUM,PORCINE 5,000 UNITS/ML VIAL SUBCUT SCH ×2 (09:58→22:53)
[2021-09-16] MEDS: BACLOFEN 10 MG TABLET GT SCH ×3 (10:13→22:21)
--- NOTE | 2021-09-16 10:30 | NUR ---
Discharge Planning: DCP faxed pt referral to [facility] P#[phone] DCP to follow up Addendum: 09/16/21 at 1318 by Shantelle SHAW DCP followed up with [facility] P#[phone] per Gurpreet no isolation room available for patient, DCP made CM aware.
[2021-09-16] MEDS: LevETIRAcetam 500 MG/5 ML UDC ORAL LIQUID GT SCH ×2 (10:40→22:22)
--- NOTE | 2021-09-16 11:03 | NUR ---
Nutrition F/U Admitting Diagnosis Sepsis Reviewed Pertinent Medical/Surgical Hx Medical Record Patient Primary RN Medical History Comment: Per EMR review, PMH includes cerebral palsy, encephalopathy, respiratory failure, and seizures. Pt also found w/ UTI and SUZI. SARS-CoV-2 Ag (Rapid) Negative 09/07. Subjective Information: RD bedside visit deferred d/t high workload. Per EMR review, pt transferred to tele from ICU 09/15; pt continues vent to trach; Luis A scale: 10, w/ wounds ot anterior sacrum, L. and R. buttocks, and posterior sacrum; 3+ pitting edema to BLE and BUE; pt has flexiseal, last BM x2 09/15, 600 ml stool output; TF Jevity 1.2 at 60 ml/hr, GRV 40 ml 09/15. RD spoke w/ primary RN via telephone, RN reported pt still having diarrhea, colace was held today. RD relayed recommendations to D/C laxatives/stool softeners and to add Banatrol BID to RN. Current Diet Order/Nutrition Support: Jevity 1.2 at 60 ml/hr, Prosource BID, Free Water Flush: 200 ml Q6h via GT x6 days Patient/Significant Other Unable To Verbalize Education Provided Not Indicated Pertinent Medications: theragran, VIT C, dulcolax, D5%NS at 100 ml/hr x10 hr (170 kcal/day), senna, keppra, heparin, piperacillin/tazobactam, colace Pertinent Labs: WBC 13.9 H, 5/: K 3.3 L, BUN 4 L, Ca 7.4 L, WBC 17.5 H Height (Feet) 5 feet Height (Inches) 5.00 inches Weight (Pounds) 180 pounds -- stable since 09/09 Patient Weight 81.647 kg Body Mass Index 29.95 kg/m2 %IBW 132 [place]/Adjusted Body Weight 136#/61.8 kg; AdjBW: 147#/66.8 kg Recent Weight Change unable to verify Weight Status Obese Last BM September 08, 2021 Food Allergies unable to verify Usual Diet At Home Jevity 1.2 @50 mL/hr per nursing assessment Skin Integrity Comment: Luis A score 11, skin tear/possible DTI on buttocks. Estimated Energy Expenditure (kcals/day) (30-35 kcals/kg AdjBW d/t obesity, sepsis, chronic vent) Estimated Protein Required (g/day) 100-134 (1.5-2 g/kg AdjBW d/t obesity, sepsis, chronic vent) Estimated Fluid Required (l/day) 2-2.3 (1 mL/kcal for maintenance) Problem/Etiology/Signs/Symptoms Increased nutritional needs R/T physiological demands AEB estimated nutritional requirements for sepsis. *Ongoing Complicated GI function R/T increased gut motility/possible malabsorption AEB loose stools. *Ongoing Expected Outcomes/Goals Monitor EN tolerance and intakes w/ goal of pt meeting more than 90% of estimated nutritional needs, labs trending WNL, normal GI function, skin integrity/wt maintenance. Dietitian Recommendations * Jevity 1.2 at 60 ml/hr, Prosource BID, Banatrol BID, Free Water Flush: 200 ml Q6h via GT Provides (w/ D5%NS IV): 1955 kcal/day, 110 g protein/day and 1963 ml free water/day Meets: 98% of lower end of estimated caloric needs, 82% of upper end of estimated protein needs, and 98% of lower end of estimated fluid needs * May consider modifying TF formula (Vital AF 1.2) if loose stools worsen/persist * Consider D/C laxatives Follow Up High Risk: F/U in 2-3 days
[2021-09-16 12:03] VITALS: BP_SYST 120
[2021-09-16 16:24] VITALS: BP_SYST 119
[2021-09-16 20:00] VITALS: BP_SYST 133
[2021-09-17 00:34] VITALS: BP_SYST 132
[2021-09-17] MEDS: D5NS 1,000 ML IV SCH ×2 (03:49→16:35)
[2021-09-17] MEDS: PIPERACILLIN/TAZO 4.5GM/DEX-IS 100 ML IV SCH ×3 (06:31→21:14)
--- NOTE | 2021-09-17 07:30 | NUR ---
RECEIVED PT FROM JUDY SNYDER. PT IS AAOX1 TO SELF, NONVERBAL, WITH TRACH IN PLACE. PT DOES NOT RESPOND TO QUESTIONS, GAG REFLEX IN PLACE. PT HAS TRACH TO VENT IN PLACE, VENT SETTINGS AC VC RR 12, TV 550, FIO2 30%, PEEP 5. PT HAS NO PURPOSEFUL MOVEMENT WITH BUE AND BLE CONTRACTED. GTUBE IN PLACE WITH JEVITY RUNNING AT 60ML/HOUR. ASPIRATION PRECAUTIONS IN PLACE. ABDOMEN SOFT, NONTENDER, NONDISTENDED, RECTAL TUBE IN PLACE, WITH SEMI-LIQUID BROWN STOOL DRAINING TO GRAVITY, TUBE FLUSHED TO MAINTAIN PATENCY. SUPRA PUBIC CATH IN PLACE, PATENT, DRAINING CLEAR YELLOW URINE TO GRAVITY, STAT LOCK IN PLACE TO R UPPER THIGH. JEFF MIDLINE [address] DRESSING CDI, WNL. ORAL CARE RENDERED, PT SUCTION ORALLY WITH CLEAR SECRETIONS NOTED. CONTACT PRECAUTIONS IN PLACE FOR ESBL OF URINE. FALL PROTOCOL IN PLACE.
[2021-09-17 08:00] VITALS: BP_SYST 142
[2021-09-17] MEDS: DOCUSATE SODIUM 100 MG/10 ML UDC GT SCH (09:00)
[2021-09-17] MEDS: SENNA 8.8 MG/5 ML UDC GT SCH (09:00)
[2021-09-17] MEDS: GABAPENTIN 100 MG CAPSULE GT SCH ×3 (09:39→21:10)
[2021-09-17] MEDS: MULTIVITS,CA,MINERALS/IRON/FA 1 TABLET GT SCH (09:39)
[2021-09-17] MEDS: LevETIRAcetam 500 MG/5 ML UDC ORAL LIQUID GT SCH ×2 (09:39→21:10)
[2021-09-17] MEDS: ASCORBIC ACID 500 MG TABLET GT SCH (09:40)
[2021-09-17] MEDS: TOPIRAMATE 100 MG TABLET(Topamax) GT SCH ×2 (09:40→21:10)
[2021-09-17] MEDS: BACLOFEN 10 MG TABLET GT SCH ×3 (09:42→21:10)
[2021-09-17] MEDS: HEPARIN SODIUM,PORCINE 5,000 UNITS/ML VIAL SUBCUT SCH ×2 (09:45→21:20)
--- NOTE | 2021-09-17 10:15 | NUR ---
ROUTING SENNA AND COLACE HELD, PT HAS RECTAL TUBE IN PLACE WITH SEMI-LIQUID STOOL. SCHEDULED MEDS GIVEN AND TOLERATED WELL. PT GIVEN ORAL CARE AND REPOSITIONED FOR SKIN MAINTENANCE. ASPIRATION PRECAUTIONS MAINTAINED.
[2021-09-17 11:26] VITALS: BP_SYST 150
--- NOTE | 2021-09-17 14:54 | NUR ---
REPORTED TO DR. BARLOW THAT PT HAS RECTAL TUBE, BUT STILL HAS ROUTING COLACE AND SENNA THAT IS BEING GIVEN. RECEIVED ORDER TO D/C BOTH MEDS. ORDER CARRIED OUT.
[2021-09-17] MEDS ORDERED: POTASSIUM CHLORIDE 20 MEQ/PKT PACKET GT ONE (15:00)
[2021-09-17 15:51] VITALS: BP_SYST 135
--- NOTE | 2021-09-17 16:35 | NUR ---
WOUND CARE PREFORMED TO SACRAL COCCYX/BUTTOCK SITE. AREA CLEANSED WITH NS, PATTED DRY, WOUND CARE OINTMENT APPLIED AND COVERED WITH OPITFOAM DRESSING. PERINEAL CARE GIVEN AND ZGUARD APPLIED. SUPRAPUBIC CATH SITE AND GTUBE SITE CLEANSED WITH NS, PATTED DRY AND CDI 4X4 GAUZE APPLIED. BLE HEELS BLANCHABLE WITH REDNESS, OPTIFOAM DRESSINGS PLACED FOR SKIN MAINTENANCE AND HEEL PROTECTORS IN PLACE. PT REPOSITIONED. ASPIRATION AND CONTACT PRECAUTIONS MAINTAINED. KCL 40 MEQ VIA GTUBE GIVEN FOR K+ = 3.2 SEVERAL DAYS AGO. NO NEW LABS TODAY. CHARGE NURSE RAJINDER MADE AWARE THAT PT'S RECTAL TUBE REMOVED, EVEN AFTER FLUSHING EARLIER IN THE DAY PT HAD SOFT STOOL SPILL OVER [place]OON AND ONTO BED. THE STOOL IS TOO SOLID FOR THE RECTAL TUBE.
--- NOTE | 2021-09-17 18:45 | NUR ---
CDIFF STOOL SAMPLE COLLECTED AND TAKEN TO LAB.
--- NOTE | 2021-09-17 19:15 | NUR ---
ENODORSED ALL CARE TO RAMESH KIM.
[2021-09-17 21:00] VITALS: BP_SYST 134
--- NOTE | 2021-09-17 21:10 | NUR ---
STOOL COLLECTED & SENT TO LAB .
[2021-09-18 01:05] VITALS: BP_SYST 121
--- NOTE | 2021-09-18 01:37 | NUR ---
RENATA DRESSING CHANGE FOR MIDLINE IV implemented , site clean & dry patient tolerated .
--- NOTE | 2021-09-18 04:15 | NUR ---
Reposition & Turning comfort measures implemented pillows used for off loading kept clean also dry as needed / .
--- NOTE | 2021-09-18 05:56 | NUR ---
WOUND CARE done as ordered , barrier cream applied position change also tolerated .
[2021-09-18] MEDS: PIPERACILLIN/TAZO 4.5GM/DEX-IS 100 ML IV SCH ×3 (06:17→23:19)
[2021-09-18] MEDS: D5NS 1,000 ML IV SCH ×3 (06:18→21:22)
[2021-09-18 08:00] VITALS: BP_SYST 130
[2021-09-18] MEDS: BACLOFEN 10 MG TABLET GT SCH ×3 (09:50→20:57)
[2021-09-18] MEDS: MULTIVITS,CA,MINERALS/IRON/FA 1 TABLET GT SCH (09:50)
[2021-09-18] MEDS: ASCORBIC ACID 500 MG TABLET GT SCH (09:50)
[2021-09-18] MEDS: LevETIRAcetam 500 MG/5 ML UDC ORAL LIQUID GT SCH ×2 (09:50→21:00)
--- NOTE | 2021-09-18 09:50 | NUR ---
Scheduled medications given per order. Patient stable with no respiratory distress noted at this time.
[2021-09-18] MEDS: GABAPENTIN 100 MG CAPSULE GT SCH ×3 (09:51→20:57)
[2021-09-18] MEDS: TOPIRAMATE 100 MG TABLET(Topamax) GT SCH ×2 (09:51→20:57)
[2021-09-18] MEDS: HEPARIN SODIUM,PORCINE 5,000 UNITS/ML VIAL SUBCUT SCH ×2 (09:53→21:00)
[2021-09-18 11:38] VITALS: BP_SYST 125
--- NOTE | 2021-09-18 12:05 | NUR ---
Patient resting comfortably in bed with eyes closed and no respiratory distress noted. Patient stable.
--- NOTE | 2021-09-18 13:30 | NUR ---
Patient resting comfortably in bed with eyes closed and no respiratory distress noted. Patient stable at this time.
--- NOTE | 2021-09-18 14:31 | NUR ---
Discharge Planning: DCP faxed pt referral to [facility] [phone] DCP to follow up.
--- NOTE | 2021-09-18 15:01 | NUR ---
Scheduled IV abx and G-tube medications given per order. Patient stable with no respiratory distress noted.
[2021-09-18 15:56] VITALS: BP_SYST 142
--- NOTE | 2021-09-18 18:00 | NUR ---
Patient stable throughout shift with no respiratory distress.
[2021-09-18 19:47] VITALS: BP_SYST 142
[2021-09-18 21:30] VITALS: BP_SYST 142
[2021-09-19] VITALS (7 sets, daily range): BP systolic 118–142
[2021-09-19] MEDS: PIPERACILLIN/TAZO 4.5GM/DEX-IS 100 ML IV SCH ×3 (05:34→21:26)
--- NOTE | 2021-09-19 06:33 | NUR ---
0600 Patient wa changed by SUPERVISOR GRIPS. Tolerated procedure well. Dressing to suprapubic and GT changed. VS checked and recorded. No distress noted. Tolerated feedings well. No change of condition noted. Monitored closely.
[2021-09-19] MEDS: LevETIRAcetam 500 MG/5 ML UDC ORAL LIQUID GT SCH ×2 (09:34→21:25)
[2021-09-19] MEDS: GABAPENTIN 100 MG CAPSULE GT SCH ×3 (09:35→21:23)
[2021-09-19] MEDS: MULTIVITS,CA,MINERALS/IRON/FA 1 TABLET GT SCH (09:35)
[2021-09-19] MEDS: BACLOFEN 10 MG TABLET GT SCH ×3 (09:35→21:22)
[2021-09-19] MEDS: ASCORBIC ACID 500 MG TABLET GT SCH (09:36)
[2021-09-19] MEDS: TOPIRAMATE 100 MG TABLET(Topamax) GT SCH ×2 (09:36→21:23)
[2021-09-19] MEDS: HEPARIN SODIUM,PORCINE 5,000 UNITS/ML VIAL SUBCUT SCH ×2 (09:42→21:28)
--- NOTE | 2021-09-19 10:15 | NUR ---
SCHEDULED MEDS GIVEN AND TOLERATED WELL. NO RESIDUAL NOTED TO GTUBE, ASPIRATION PRECAUTIONS MAINTAINED.
[2021-09-19] MEDS: D5NS 1,000 ML IV SCH ×2 (10:44→16:18)
[2021-09-19] MEDS: ACETAMINOPHEN 650 MG/20.3 ML UDC GT PRN (10:48)
--- NOTE | 2021-09-19 15:00 | NUR ---
DRESSING CHANGE TO L BUTTOCK AND SACRAL COCCYX SITE PREFORMED. NEW EXCORIATION WOUND NOTED TO R BUTTOCK, PICTURE TAKEN AND PLACED IN CHART. REPORTED TO CHARGE NURSE, DRESSED SITE WITH OPTIFOAM.
--- NOTE | 2021-09-19 18:53 | NUR ---
RECEIVED PT FROM JUDY MUNGUIA. ASSUMED ALL CARE.
--- NOTE | 2021-09-19 19:17 | NUR ---
ENDORSED ALL CARE TO JUDY MUNGUIA.
[2021-09-20 00:03] VITALS: BP_SYST 107
[2021-09-20] MEDS: D5NS 1,000 ML IV SCH ×3 (03:17→13:56)
[2021-09-20] MEDS: PIPERACILLIN/TAZO 4.5GM/DEX-IS 100 ML IV SCH ×3 (05:07→21:30)
--- NOTE | 2021-09-20 05:52 | NUR ---
0550 Patient was comfortable on bed. Changed and cleaned at this time. Tolerated procedure well. Oral care performed. GT feeding kept maintained and noted with minimal residuals. GT dressing changed. Suprapubic catheter still in place and dressing changed, PICC line stable and patent with IVF ordered infusing well. Still remains contracted. No changes of condition noted. Repositioned to sides every 2 hours. All needs attended. Call light placed within reach. Monitored closely.
[2021-09-20 06:48] LABS: BASOPHILS # (AUTO) 0.1 K/uL (0.0-0.2); BASOPHILS % (AUTO) 0.5 % (0.0-2.0); EOSINOPHILS # (AUTO) 0.1 K/uL (0.0-0.4); EOSINOPHILS % (AUTO) 1.2 % (0.0-4.0); HEMATOCRIT 38.5 % (36-54); HEMOGLOBIN 13.2 g/dL (14.0-18.0); LYMPHOCYTES # (AUTO) 1.6 K/uL (1.0-5.5); MEAN CORPUSCULAR HEMOGLOBIN 32 pg (27-31); MEAN CORPUSCULAR HGB CONC 34 % (32-36); MEAN CORPUSCULAR VOLUME 94 fL (79.0-98.0); MONOCYTES # (AUTO) 1.1 K/uL (0.0-1.0); MONOCYTES % (AUTO) 10.9 % (1.7-9.3); NEUTROPHILS # (AUTO) 7.6 K/uL (1.8-7.7); NEUTROPHILS % (AUTO) 72.4 % (40.0-70.0); PLATELET COUNT (AUTO) 443 K/uL (130-430); RED CELL DISTRIBUTION WIDTH 13.2 % (9.0-15.0); WHITE BLOOD COUNT (AUTO) 10.5 K/uL (4.8-10.8)
[2021-09-20 07:19] LABS: CALCIUM 7.5 mg/dL (8.4-11.0); CREATININE 0.71 mg/dL (0.55-1.30)
--- NOTE | 2021-09-20 07:30 | NUR ---
RECEIVED REPORT FROM [facility]. PT RESPONSIVE TO PAIN. HOB ELEVATED. TRACH TO VENT. FIO2 @ 30. TV 550. PEEP 5. RR 12. PT SUCTIONED. O2 SATURATION @ 96% VIA PULSE OX. RR EVEN & UNLABORED. GTUBE FEEDING @ 60 ML/HR. FLUSHED WITH 200 ML WATER. TOLERATING GTUBE FEEDING. MIDLINE ON RENATA WITH D5NS @ 100 ML/HR. SUPRAPUBIC CATHETER VIA GRAVITY WITH CLEAR, YELLOW URINE. AIR MATTRESS IN PLACE. NEEDS ALL MET. SEIZURE PRECAUTION IN PLACE. SAFETY MEASURES IN PLACE. WILL CONTINUE TO MONITOR CLOSELY.
[2021-09-20 08:00] VITALS: BP_SYST 131
[2021-09-20] MEDS: MULTIVITS,CA,MINERALS/IRON/FA 1 TABLET GT SCH (09:15)
[2021-09-20] MEDS: ASCORBIC ACID 500 MG TABLET GT SCH (09:15)
[2021-09-20] MEDS: BACLOFEN 10 MG TABLET GT SCH ×3 (09:16→21:27)
[2021-09-20] MEDS: GABAPENTIN 100 MG CAPSULE GT SCH ×3 (09:16→21:27)
[2021-09-20] MEDS: HEPARIN SODIUM,PORCINE 5,000 UNITS/ML VIAL SUBCUT SCH ×2 (09:16→21:29)
[2021-09-20] MEDS: TOPIRAMATE 100 MG TABLET(Topamax) GT SCH ×2 (09:16→21:27)
[2021-09-20] MEDS: LevETIRAcetam 500 MG/5 ML UDC ORAL LIQUID GT SCH ×2 (09:19→21:27)
[2021-09-20 12:00] VITALS: BP_SYST 123
--- NOTE | 2021-09-20 13:00 | NUR ---
PT SUCTIONED. HOB ELEVATED. O2 SATURATION @ 96%. NO SOB OR RESPIRATORY DISTRESS. RR EVEN AND UNLABORED. MIDLINE ON RENATA WITH D5NS @ 100 ML/HR. DRESSING C/D/I. GTUBE FEEDING INFUSING. O ML RESIDUAL. NO S/S OF NAUSEA. TOLERATING FEEDING. SUPRAPUBIC CATHETER VIA GRAVITY. 1000 ML URINE OUTPUT FROM CATHETER. NEEDS ALL MET AT THIS TIME. SAFETY MEASURES IN PLACE. WILL CONTINUE TO MONITOR.
[2021-09-20 15:32] VITALS: BP_SYST 123
[2021-09-20 16:00] VITALS: BP_SYST 144
--- NOTE | 2021-09-20 18:29 | NUR ---
PT WITH NO ADVERSE REACTION FROM ANTIBIOTIC. PT RESTING WITH EYES CLOSED. RR EVEN & UNLABORED. PT STABLE. NO SIGNS OF DISTRESS NOTED. VSS. PT WITH 1000 ML URINE OUTPUT. HOB ELEVATED. GTUBE FEEDING INFUSING. 0 ML RESIDUAL. TOLERATING GTUBE FEEDING. PT REPOSITIONED. NEEDS ALL MET AT THIS TIME. SAFETY MEASURES IN PLACE. HOURLY ROUNDS CONDUCTED THROUGHOUT MY SHIFT.
--- NOTE | 2021-09-20 19:18 | NUR ---
REPORT GIVE TO NIGHTSHIFT RN FOR CONTINUITY OF CARE.
[2021-09-20] MEDS: ACETAMINOPHEN 650 MG/20.3 ML UDC GT PRN (19:57)
[2021-09-20 20:00] VITALS: BP_SYST 120
[2021-09-21] VITALS (7 sets, daily range): BP systolic 119–133
[2021-09-21] MEDS: PIPERACILLIN/TAZO 4.5GM/DEX-IS 100 ML IV SCH (05:41)
--- NOTE | 2021-09-21 06:20 | NUR ---
0620 Patient remains bed bound. Kept warm and comfortable on bed. Cleaned and changed at 0400. VS checked and recorded. Remains on telemetry. Suctioned orally and via trach. Obtained moderate amount of whitish thick secretions. Sleeping most of the night. GT and SPC intact and patent. Dressing to GT and SPC changed. Dressing to the back was also changed. Remains on IV antibiotic with no adverse drug reaction noted. Repositioned from side to side per protocol. All needs attended. Call light placed within reach. Monitored closely.
--- NOTE | 2021-09-21 07:30 | NUR ---
RECEIVED REPORT FROM NIGHTSHIFT RN. PT A/O X0. REACTIVE TO LIGHT STIMULI. HOB ELEVATED. TRACH TO VENT. FIO2 30%, TV 550, RR12. NO SOB OR RESPIRATORY DISTRESS. RR EVEN & UNLABORED. HOB ELEVATED. NO DISTRESS NOTED. GTUBE FEEDING RESIDUAL <3 ML. PT TOLERATING GTUBE FEEDING. SUPRAPUBIC CATHETER VIA DRAINAGE BAG. DRESSING C/D/I. NEEDS ALL MET AT THIS TIME. SAFETY MEASURES IN PLACE. WILL CONTINUE TO MONITOR CLOSELY.
[2021-09-21] MEDS: HEPARIN SODIUM,PORCINE 5,000 UNITS/ML VIAL SUBCUT SCH ×2 (08:07→22:22)
[2021-09-21] MEDS: LevETIRAcetam 500 MG/5 ML UDC ORAL LIQUID GT SCH ×2 (08:14→22:20)
[2021-09-21] MEDS: TOPIRAMATE 100 MG TABLET(Topamax) GT SCH ×2 (08:14→22:21)
[2021-09-21] MEDS: MULTIVITS,CA,MINERALS/IRON/FA 1 TABLET GT SCH (08:15)
[2021-09-21] MEDS: D5NS 1,000 ML IV SCH ×2 (08:15→19:15)
[2021-09-21] MEDS: BACLOFEN 10 MG TABLET GT SCH ×3 (08:15→22:21)
[2021-09-21] MEDS: ASCORBIC ACID 500 MG TABLET GT SCH (08:15)
[2021-09-21] MEDS: GABAPENTIN 100 MG CAPSULE GT SCH ×3 (08:15→22:21)
--- NOTE | 2021-09-21 15:22 | NUR ---
PT'S SUPRAPUBIC CATHETER WAN BAG EMPTIED WITH 850 ML CLEAR, YELLOW URINE. 3 ML GTUBE FEEDING RESIDUAL. FEEDING RESTARTED. HOB ELEVATED. PT IN NO DISTRESS. O2 SAT @ 100%. TRACH TO VENT. NO COUGH NOTED. HOB ELEVATED. NEEDS ALL MET AT THIS TIME. SAFETY MEASURES IN PLACE.
--- NOTE | 2021-09-21 16:20 | NUR ---
PT SUCTIONED AND ORAL CARE GIVEN. PT REPOSTIONED. FIO2 30%, TV 550, RR12, PEEP 5. O2 SATURATION @ 100% TRACH TO VENT. GTUBE FEEDING INFUSING. PT TOLERATING FEEDING
[2021-09-21] MEDS: TOBRAMYCIN 300MG/5ML INH AMPUL.NEB INH SCH (19:00)
--- NOTE | 2021-09-21 19:17 | NUR ---
REPORT GIVEN TO JUDY MORGAN FOR CONTINUITY OF CARE.
[2021-09-22 00:10] VITALS: BP_SYST 131
--- NOTE | 2021-09-22 02:14 | NUR ---
Incontinence Care/Wound Care Incontinence care provided. Linens and gown changed. Skin care and wound care done, new dressings placed to buttocks and sacrum. Turned and repositioned. GT residual currently 5mL, tube feed running. IV fluids infusing as ordered. Oral suctioning provided. Fall, safety, and aspiration precautions in place.
[2021-09-22] MEDS: D5NS 1,000 ML IV SCH ×2 (06:09→16:10)
[2021-09-22] MEDS: TOBRAMYCIN 300MG/5ML INH AMPUL.NEB INH SCH ×2 (07:00→19:00)
--- NOTE | 2021-09-22 07:30 | NUR ---
seen pt in bed, pt is sleeping, awaken for oral suctioning as there is a lot of oral secretion pooling in pt's mouth. pt is on trache to vent. no change in setting per night nurse. no leak seen from g-tube. supra pubic cath patent and intact draining yellow urine. will cont to monitor.
--- NOTE | 2021-09-22 07:30 | NUR ---
Patient in stable condition. Care endorsed to day shift.
[2021-09-22 07:50] VITALS: BP_SYST 153
[2021-09-22] MEDS: LevETIRAcetam 500 MG/5 ML UDC ORAL LIQUID GT SCH ×2 (08:38→21:19)
[2021-09-22] MEDS: GABAPENTIN 100 MG CAPSULE GT SCH ×3 (08:38→21:20)
[2021-09-22] MEDS: MULTIVITS,CA,MINERALS/IRON/FA 1 TABLET GT SCH (08:38)
[2021-09-22] MEDS: BACLOFEN 10 MG TABLET GT SCH ×3 (08:38→21:20)
[2021-09-22] MEDS: ASCORBIC ACID 500 MG TABLET GT SCH (08:38)
[2021-09-22] MEDS: TOPIRAMATE 100 MG TABLET(Topamax) GT SCH ×2 (08:39→21:19)
[2021-09-22] MEDS: HEPARIN SODIUM,PORCINE 5,000 UNITS/ML VIAL SUBCUT SCH ×2 (08:40→21:21)
--- NOTE | 2021-09-22 10:21 | NUR ---
pt's eyes open, no change in vent settings. no secretion at this time.
--- NOTE | 2021-09-22 10:27 | NUR ---
Discharge Planning: DCP faxed pt referral [facility] P#[phone] and [facility] Kathya#[phone] DCP to follow up. Addendum: 09/22/21 at 1321 by Shantelle Hopkins DP Jennifer Rasheed#[phone] accepted pt to Rm 403B, [facility] P#[phone] accepted Rm 119A CM aware. Addendum: 09/22/21 at 1629 by Shantelle Hopkins DP DCP spoke to Shantelle Childress P#[phone] accepted pt to Rm 403B, patient can dc to SNF once auth is given from insurance. DCP to follow up
[2021-09-22 11:26] VITALS: BP_SYST 137
--- NOTE | 2021-09-22 13:37 | NUR ---
Dietitian Recommendations * Jevity 1.2 at 60 ml/hr, Prosource BID, Banatrol BID, Free Water Flush: 200 ml Q6h via GT Provides (w/ D5%NS IV): 1955 kcal/day, 110 g protein/day and 1963 ml free water/day Meets: 98% of lower end of estimated caloric needs, 82% of upper end of estimated protein needs, and 98% of lower end of estimated fluid needs Please refer to Nutrition F/U for details.
--- NOTE | 2021-09-22 13:37 | NUR ---
Nutrition F/U Admitting Diagnosis Sepsis Reviewed Pertinent Medical/Surgical Hx Medical Record Patient Primary RN Medical History Comment: Per EMR review, PMH includes cerebral palsy, encephalopathy, respiratory failure, and seizures. Pt also found w/ UTI and SUZI. SARS-CoV-2 Ag (Rapid) Negative 09/07. Subjective Information: RD bedside visit deferred d/t high workload. Per physician notes, pts diarrhea is improving, c. diff negative 09/17, diarrhea may be caused by Zosyn; Per EMR review, pt continues vent to trach; Luis A scale: 11, w/ wounds to L. and R. buttocks, and erythema to posterior sacrum and symphysis pubis; pitting edema to BLE and BUE; last BM x1 09/21; abd. is soft and non-distended w/ active bowel sounds; TF Jevity 1.2 at 60 ml/hr, GRV 5 ml 09/22 per nursing notes. Current Diet Order/Nutrition Support: Jevity 1.2 at 60 ml/hr, Prosource BID, Free Water Flush: 200 ml Q6h, Banana flakes via GT x5 days Patient/Significant Other Unable To Verbalize Education Provided Not Indicated Pertinent Medications: theragran, VIT C, D5%NS at 100 ml/hr x10 hr (170 kcal/day), keppra, heparin, tobramycin Pertinent Labs: reviewed, no new since 09/20 Height (Feet) 5 feet Height (Inches) 5.00 inches Weight (Pounds) 180 pounds -- stable since 09/09 Patient Weight 81.647 kg Body Mass Index 29.95 kg/m2 %IBW 132 [place]/Adjusted Body Weight 136#/61.8 kg; AdjBW: 147#/66.8 kg Recent Weight Change unable to verify Weight Status Obese Last BM September 08, 2021 Food Allergies unable to verify Usual Diet At Home Jevity 1.2 @50 mL/hr per nursing assessment Skin Integrity Comment: Luis A score 11, skin tear/possible DTI on buttocks. Estimated Energy Expenditure (kcals/day) 7250-5840 (30-35 kcals/kg AdjBW d/t obesity, sepsis, chronic vent) Estimated Protein Required (g/day) 100-134 (1.5-2 g/kg AdjBW d/t obesity, sepsis, chronic vent) Estimated Fluid Required (l/day) 2-2.3 (1 mL/kcal for maintenance) Problem/Etiology/Signs/Symptoms Increased nutritional needs R/T physiological demands AEB estimated nutritional requirements for sepsis. *Ongoing Complicated GI function R/T increased gut motility/possible malabsorption AEB loose stools. *Improving, receiving banana flakes Expected Outcomes/Goals Monitor EN tolerance and intakes w/ goal of pt meeting more than 90% of estimated nutritional needs, labs trending WNL, normal GI function, skin integrity/wt maintenance. Dietitian Recommendations * Jevity 1.2 at 60 ml/hr, Prosource BID, Banatrol BID, Free Water Flush: 200 ml Q6h via GT Provides (w/ D5%NS IV): 1955 kcal/day, 110 g protein/day and 1963 ml free water/day Meets: 98% of lower end of estimated caloric needs, 82% of upper end of estimated protein needs, and 98% of lower end of estimated fluid needs Follow Up Mod Risk: F/U in 3-5 days
[2021-09-22 15:50] VITALS: BP_SYST 123
--- NOTE | 2021-09-22 16:18 | NUR ---
DC PLAN: PER [facility] SUSAN MERCADO, THERE IS A HOLD -UP FOR DC TODAY. NEED FOR PRE-AUTHORIZATION FROM INSURANCE TO TRANSFER TO SNF.
--- NOTE | 2021-09-22 18:55 | NUR ---
PATIENT HAS BEEN STABLE THE WHOLE SHIFT, NO CHANGE IN VENT SETTING, TUBE FEEDING CONTINUED, LITTLE LEAK NOTED ON THE G-TUBE, DR BARLOW IS AWARE. SUCTION PRN, ORAL SUCTIONING AND CARE DONE. DC TO SNF NEEDS INSURANCE AUTHORIZATION. DC PROBABLY IN AM PER DCP.
[2021-09-23 00:10] VITALS: BP_SYST 144
[2021-09-23] MEDS: D5NS 1,000 ML IV SCH (01:15)
--- NOTE | 2021-09-23 06:50 | NUR ---
Pt has had an uneventful shift. Pt is trach and vent dependent. Pt suctioned prn to maintain patent airway. VSS. No s/s acute distress noted. Pt turned and repositioned q 2 hours. Tolerating peg tube feedings without any N/V/D. No change in condition noted. Discharge planning in progress for this pt.
[2021-09-23] MEDS: TOBRAMYCIN 300MG/5ML INH AMPUL.NEB INH SCH (07:00)
[2021-09-23 07:54] VITALS: BP_SYST 134
[2021-09-23 07:58] VITALS: BP_SYST 138
--- NOTE | 2021-09-23 08:00 | NUR ---
NOTES PATIENT NON VERBAL. MOUTH OPEN ALL THE TIMES. ON MECHANICAL VENTILATOR OF AC 12, TV 550, FIO2 OF 30% AND PEEP OF 5. NO SOB NOR DISTRESS NOTED. HOB ELEVATED. HAS MIDLINE ON THE LEFT UPPER ARM 2 LUMEN. CALL LIGHTS WITHIN REACH. BED LOW POSITION, ALARMED AND LOCKED. STILL ON CONTACT ISOLATION NOTED. HOURLY ROUNDING NEEDED.
[2021-09-23] MEDS: HEPARIN SODIUM,PORCINE 5,000 UNITS/ML VIAL SUBCUT SCH (08:41)
[2021-09-23] MEDS: ASCORBIC ACID 500 MG TABLET GT SCH (08:42)
[2021-09-23] MEDS: GABAPENTIN 100 MG CAPSULE GT SCH ×2 (08:42→14:19)
[2021-09-23] MEDS: MULTIVITS,CA,MINERALS/IRON/FA 1 TABLET GT SCH (08:42)
[2021-09-23] MEDS: BACLOFEN 10 MG TABLET GT SCH ×2 (08:42→14:19)
[2021-09-23] MEDS: TOPIRAMATE 100 MG TABLET(Topamax) GT SCH (08:42)
[2021-09-23] MEDS: LevETIRAcetam 500 MG/5 ML UDC ORAL LIQUID GT SCH (09:06)
--- NOTE | 2021-09-23 09:07 | NUR ---
DUE MEDS GIVEN VIA G TUBE. FLUSHED WITH WATER.
--- NOTE | 2021-09-23 11:30 | NUR ---
Discharge Planning: DCP arranged transport with [facility] [phone] 2:00pm CCT/ with RT to [facility] P#[phone] accepted pt to Rm [id number] DCP made nurse and CM aware patient packet taken to nurse station.
[2021-09-23 12:07] VITALS: BP_SYST 124
[2021-09-23 12:08] VITALS: BP_SYST 124
--- NOTE | 2021-09-23 12:36 | NUR ---
SBAR REPORT GIVEN TO THOMAS KIM AT [facility] ROOM NUMBER [id number] UNDER THE CARE OF CHITO BOYKIN
--- NOTE | 2021-09-23 13:07 | NUR ---
COVID TEST RAPID SENT TO LAB. AWAITING FOR RESULTS.
--- NOTE | 2021-09-23 15:48 | NUR ---
LEOPOLDO MILNER RN ELECTRIC LIFT TRUCK DRIVER TIME. 1530PM. AWAITING FOR THE AMBULANCE TO COME AND ELECTRIC LIFT TRUCK DRIVER THE PATIENT.
[2021-09-23 16:34] VITALS: BP_SYST 122
--- NOTE | 2021-09-23 18:26 | NUR ---
Follow up made to [facility], spoke to bao Sanchez is 15 to 20 minutes from now. JUDY Beck is notified.
--- NOTE | 2021-09-23 18:45 | NUR ---
AWAITING FOR THE [facility] TO COME AND JUNIOR UNDERWRITER THE PATIENT.
== END 2021-09-23 19:20 | DRG 720 ==
LOC: SED 20:59 → SIC 09-08 00:38 → STU 09-15 04:26
PROVIDERS: ADMIT Family Medicine; ATTEND Family Medicine
PROC: 5A1955Z Respiratory Ventilation, Greater than 96 Consecutive Hours (ICD-10-PCS; principal; 2021-09-07)
DX: A41.50 Gram-negative sepsis, unspecified (principal); R65.21 Severe sepsis with septic shock; G93.40 Encephalopathy, unspecified; J15.1 Pneumonia due to Pseudomonas; J96.10 Chronic respiratory failure, unspecified whether with hypoxia or hypercapnia; N17.9 Acute kidney failure, unspecified; Z99.11 Dependence on respirator [ventilator] status; Z93.0 Tracheostomy status; T83.511A Infection and inflammatory reaction due to indwelling urethral catheter, initial encounter; N39.0 Urinary tract infection, site not specified; E86.0 Dehydration; G80.9 Cerebral palsy, unspecified; G40.909 Epilepsy, unspecified, not intractable, without status epilepticus; Z20.822 Contact with and (suspected) exposure to COVID-19; Y84.6 Urinary catheterization as the cause of abnormal reaction of the patient, or of later complication, without mention of misadventure at the time of the procedure; Y84.8 Other medical procedures as the cause of abnormal reaction of the patient, or of later complication, without mention of misadventure at the time of the procedure; Z93.1 Gastrostomy status; Z87.440 Personal history of urinary (tract) infections; Z86.19 Personal history of other infectious and parasitic diseases; Y92.89 Other specified places as the place of occurrence of the external cause
CPT/HCPCS: 36415; 36600; 71045; 80048; 80053; 81000; 82550; 82803-TC; 83605; 83615; 84484; 85007; 85025; 85027; 85610-TC; 85730-TC; 86140; 87040; 87070-TC; 87081; 87086; 87205-TC; 87230-TC; 93005; 94003; 94640; 94760; 96374; 96375; 99291; G0378; J1644; J1720; J1885; J1953; J2020; J2185; J2248; J2543; J3370; J3480; J7050